=== PATIENT | male | born 1990 | race Caucasian/White ===

== ENCOUNTER 2018-12-06 19:18 | Observation (INO) ==
--- NOTE | 2018-12-06 19:34 | Emergency Department Note ---
Disposition Clinical Impression: Calculus of kidney, Renal colic, Pyelonephritis Disposition: Admitted As Inpatient Condition: Fair Time of Disposition: 22:25 General Adult HPI - General Chief complaint: ED Abdominal Pain Stated complaint: kidney stone Time Seen by Provider: 12/06/18 19:28 Source: family Limitations: physical limitation - History of Present Illness Pain Scale: 9 - Related Data Home Medications Medication Instructions Recorded Confirmed LORazepam [Ativan] 2 mg PO QID 01/21/15 02/04/15 LevETIRAcetam [Keppra] 1,000 mg PO Q12H 01/21/15 02/04/15 Multivitamin [Flintstones] 1 each PO DAILY 01/21/15 02/04/15 Ondansetron [Zofran] 4 mg PO Q8HR PRN 01/21/15 02/04/15 Tizanidine [Zanaflex] 4 mg PO TID 01/21/15 02/04/15 Topiramate [Topamax] 50 mg PO HS 01/21/15 02/04/15 Previous Rx's Medication Instructions Recorded Acetaminophen w/Cod 300-30 mg 1 tab PO Q6HR PRN #33 tablet 02/04/15 [Tylenol w/Codeine #3] Acetaminophen w/Cod 300-30 mg 1 tab PO Q6HR PRN #33 tablet 02/04/15 [Tylenol w/Codeine #3] Clindamycin [Cleocin] 2 cap PO Q6HR #40 capsule 02/04/15 Clindamycin [Cleocin] 2 cap PO Q6HR #40 capsule 02/04/15 Allergies Allergy/AdvReac Type Severity Reaction Status Date / Time acetaminophen [From Percocet] Allergy Mild ITCHING Verified 01/21/15 07:39 HIVES oxycodone [From Percocet] Allergy Mild ITCHING Verified 01/21/15 07:39 HIVES Buspirone [From BuSpar] Allergy Unknown HIVES Verified 01/21/15 07:39 AGITATION INCREASED BP carbamazepine [From Tegretol] Allergy Unknown HIVES Verified 01/21/15 07:39 AGITATION INCREASED BP citalopram [From Celexa] Allergy Unknown HIVES Verified 01/21/15 07:39 AGITATION INCREASED BP diazepam [From Valium] Allergy Unknown HIVES Verified 01/21/15 07:39 AGITATION INCREASED BP hydromorphone [From Dilaudid] Allergy Unknown DECREASED Verified 01/21/15 07:39 BP RESPITORY DISTRESS lacosamide [From Vimpat] Allergy Unknown HIVES Verified 01/21/15 07:39 AGITATION INCREASED BP lamotrigine [From Lamictal] Allergy Unknown HIVES Verified 01/21/15 07:39 AGITATION INCREASED BP morphine Allergy Unknown HIVES Verified 01/21/15 07:39 INCREASED BP RESPITORY DISTRESS Past Medical History - Past Medical History Medical history: Reports: kidney stones Psychiatric history: Reports: no psych history - Social History Smoking Status: Never smoker Smokeless Tobacco Status: No Alcohol use: Reports: none Drug use: Reports: none Physical Exam - General Limitations: physical limitation Course Vital Signs Temperature 98.2 F 12/06/18 19:20 Pulse Rate 115 12/06/18 19:20 Respiratory Rate 18 12/06/18 19:20 Blood Pressure 131/83 12/06/18 19:20 O2 Sat by Pulse Oximetry 100 12/06/18 19:20 Temperature 98.2 F 12/06/18 19:20 Pulse Rate 111 12/06/18 21:05 Respiratory Rate 20 12/06/18 21:05 Blood Pressure 140/90 12/06/18 21:05 O2 Sat by Pulse Oximetry 99 12/06/18 21:05 Oxygen Delivery Oxygen Delivery Room Air Medical Decision Making - Lab Data Result diagrams: 12/06/18 19:45 12/06/18 19:45 Lab Results 12/06/18 12/06/18 12/06/18 Range/Units 19:45 19:45 20:35 WBC 11.2 H (4.3-11.1) K/mcL RBC 4.16 L (4.19-5.50) M/mcL Hgb 13.0 (12.9-16.9) g/dL Hct 37.9 (37.5-50.1) % MCV 91.1 (83.0-100.0) fL MCH 31.3 (28.0-33.3) pg MCHC 34.3 (31.6-35.5) g/dL RDW 11.5 (11.5-14.5) % Plt Count 152 (140-400) K/mcL MPV 10.2 (9.4-12.4) fL Immature Gran % 0.3 (0-4) % Seg Neutrophils % 66.4 % Lymphocytes % 20.5 % Monocytes % 12.0 % Eosinophils % 0.4 % Basophils % 0.4 % Neutrophils # 7.5 (1.6-8.9) K/mcL Lymphocytes # 2.3 (0.6-4.6) K/mcL Monocytes # 1.4 H (0.0-1.3) K/mcL Eosinophils # 0.1 (0.0-0.6) K/mcL Basophils # 0.1 (0.0-0.2) K/mcL Sodium 138 (136-145) mEq/L Potassium 3.4 L (3.5-5.1) mEq/L Chloride 106 (98-107) mEq/L Carbon Dioxide 26 (23-29) mEq/L BUN 11 (6-20) mg/dL Creatinine 1.11 (0.70-1.30) mg/dL Est GFR ( Amer) > 60 (> 60) Est GFR (Non-Af Amer) > 60 (> 60) BUN/Creatinine Ratio 10 (6-26) Glucose 124 H (70-105) mg/dL Calculated Osmolality 287 (280-300) Lactic Acid (0.5-2.2) mmol/L Calcium 9.5 (8.6-10.3) mg/dL Total Bilirubin 0.6 (0.3-1.0) mg/dL AST 19 (13-39) Units/L ALT 23 (7-52) Units/L Alkaline Phosphatase 44 (34-104) Units/L Serum Total Protein 7.6 (6.4-8.9) g/dL Albumin 4.4 (3.5-5.7) g/dL Globulin 3.2 (2.4-3.5) g/dL Albumin/Globulin Ratio 1.4 (1.1-2.2) Urine Color Dark Yellow (Yellow) Urine Clarity Cloudy A (Clear) Urine pH 7.5 (5.0-8.0) pH Units Ur Specific [place] 1.030 H (1.010-1.025) Urine Protein 30 H (Neg-Trace) mg/dL Urine Glucose (UA) Normal (Normal) mg/dL Urine Ketones Negative (Negative) mg/dL Urine Blood Negative (Negative) Urine Nitrite Negative (Negative) Urine Bilirubin Small H (Negative) Urine Urobilinogen Normal (Normal) mg/dL Ur Leukocyte Esterase Moderate H (Negative) Urine Microscopic RBC 3-5 H (0-3) per hpf Urine Microscopic WBC 50-100 H (0-3) per hpf Ur Squamous Epith Cells Few (None-Few) per lpf Urine Bacteria Moderate H (None-Few) per hpf Hyaline Casts Moderate H (None-Few) per lpf 12/06/18 Range/Units 21:51 WBC (4.3-11.1) K/mcL RBC (4.19-5.50) M/mcL Hgb (12.9-16.9) g/dL Hct (37.5-50.1) % MCV (83.0-100.0) fL MCH (28.0-33.3) pg MCHC (31.6-35.5) g/dL RDW (11.5-14.5) % Plt Count (140-400) K/mcL MPV (9.4-12.4) fL Immature Gran % (0-4) % Seg Neutrophils % % Lymphocytes % % Monocytes % % Eosinophils % % Basophils % % Neutrophils # (1.6-8.9) K/mcL Lymphocytes # (0.6-4.6) K/mcL Monocytes # (0.0-1.3) K/mcL Eosinophils # (0.0-0.6) K/mcL Basophils # (0.0-0.2) K/mcL Sodium (136-145) mEq/L Potassium (3.5-5.1) mEq/L Chloride (98-107) mEq/L Carbon Dioxide (23-29) mEq/L BUN (6-20) mg/dL Creatinine (0.70-1.30) mg/dL Est GFR ( Amer) (> 60) Est GFR (Non-Af Amer) (> 60) BUN/Creatinine Ratio (6-26) Glucose (70-105) mg/dL Calculated Osmolality (280-300) Lactic Acid 1.0 (0.5-2.2) mmol/L Calcium (8.6-10.3) mg/dL Total Bilirubin (0.3-1.0) mg/dL AST (13-39) Units/L ALT (7-52) Units/L Alkaline Phosphatase (34-104) Units/L Serum Total Protein (6.4-8.9) g/dL Albumin (3.5-5.7) g/dL Globulin (2.4-3.5) g/dL Albumin/Globulin Ratio (1.1-2.2) Urine Color (Yellow) Urine Clarity (Clear) Urine pH (5.0-8.0) pH Units Ur Specific [place] (1.010-1.025) Urine Protein (Neg-Trace) mg/dL Urine Glucose (UA) (Normal) mg/dL Urine Ketones (Negative) mg/dL Urine Blood (Negative) Urine Nitrite (Negative) Urine Bilirubin (Negative) Urine Urobilinogen (Normal) mg/dL Ur Leukocyte Esterase (Negative) Urine Microscopic RBC (0-3) per hpf Urine Microscopic WBC (0-3) per hpf Ur Squamous Epith Cells (None-Few) per lpf Urine Bacteria (None-Few) per hpf Hyaline Casts (None-Few) per lpf Attestation Statement - Attestation Attestation: I reviewed the residents documentation and agree with the residents assessment and plan of care. I have personally had face to face time with the patient. (Brief History, Brief Exam, and MDM) I personally supervised and was present for the moody/critical portions of the following procedures completed by the resident: (add procedures performed here). [id number] time provided Patient arrives care of his mother. He has a recent history of urologic instrumentation with stent placement due to obstructive uropathy. The patient appears uncomfortable on exam. The patient was evaluated in conjunction with the resident physician Dr. Alejo
[2018-12-06] MEDS ORDERED: *HR* FentaNYL (PF) 100 MCG/2 ML VIAL IVP ONE ×2 (19:36→20:38)
--- NOTE | 2018-12-06 19:41 | Emergency Department Note ---
Disposition Clinical Impression: Calculus of kidney, Renal colic, Pyelonephritis Disposition: Admitted As Inpatient Condition: Fair Time of Disposition: 22:23 Abdominal Pain HPI - General Chief Complaint: ED Abdominal Pain Stated Complaint: kidney stone Source: family - History of Present Illness HPI Narrative: Kraig is a 28-year-old male with past medical history of having cer palsy and epilepsy with recent hospitalization for renal failure secondary to kidney stones who presented to the ED with back pain and abdominal pain. Patient's mom states that 7 weeks ago, he was diagnosed with multiple kidney stones and has undergone 4 surgeries at [facility] within the last 4 weeks and has been unable to pass small. She states that he began to have a fever today MAXIMUM TEMPERATURE 103.1F. Patient was given ibuprofen 800mg , Zofran 4 mg, and hydrocodone 7.5 mg at 1715 today. His nausea was resolved with this medication regimen by his pain is still severe. Today patient has been having dysuria and having to push urine out. Denies hematuria. Mom became concerned because he previously had sepsis when all this started in he had new-onset fever today. He has been following with the urologist in [place], [place], but has an appointment with Dr. Alcaraz on December. Patient has had 2 CT scans within the last 7 weeks with the last CT scan being 3 weeks ago. Admits to bilateral lower extremity edema. Denies dizziness, changes in vision, shortness breath, chest pain. Pain Scale: 9 - Related Data Home Medications Medication Instructions Recorded Confirmed LORazepam [Ativan] 2 mg PO QID 01/21/15 02/04/15 LevETIRAcetam [Keppra] 1,000 mg PO Q12H 01/21/15 02/04/15 Multivitamin [Flintstones] 1 each PO DAILY 01/21/15 02/04/15 Ondansetron [Zofran] 4 mg PO Q8HR PRN 01/21/15 02/04/15 Tizanidine [Zanaflex] 4 mg PO TID 01/21/15 02/04/15 Topiramate [Topamax] 50 mg PO HS 01/21/15 02/04/15 Previous Rx's Medication Instructions Recorded Acetaminophen w/Cod 300-30 mg 1 tab PO Q6HR PRN #33 tablet 02/04/15 [Tylenol w/Codeine #3] Acetaminophen w/Cod 300-30 mg 1 tab PO Q6HR PRN #33 tablet 02/04/15 [Tylenol w/Codeine #3] Clindamycin [Cleocin] 2 cap PO Q6HR #40 capsule 02/04/15 Clindamycin [Cleocin] 2 cap PO Q6HR #40 capsule 02/04/15 Allergies Allergy/AdvReac Type Severity Reaction Status Date / Time acetaminophen [From Percocet] Allergy Mild ITCHING Verified 01/21/15 07:39 HIVES oxycodone [From Percocet] Allergy Mild ITCHING Verified 01/21/15 07:39 HIVES Buspirone [From BuSpar] Allergy Unknown HIVES Verified 01/21/15 07:39 AGITATION INCREASED BP carbamazepine [From Tegretol] Allergy Unknown HIVES Verified 01/21/15 07:39 AGITATION INCREASED BP citalopram [From Celexa] Allergy Unknown HIVES Verified 01/21/15 07:39 AGITATION INCREASED BP diazepam [From Valium] Allergy Unknown HIVES Verified 01/21/15 07:39 AGITATION INCREASED BP hydromorphone [From Dilaudid] Allergy Unknown DECREASED Verified 01/21/15 07:39 BP RESPITORY DISTRESS lacosamide [From Vimpat] Allergy Unknown HIVES Verified 01/21/15 07:39 AGITATION INCREASED BP lamotrigine [From Lamictal] Allergy Unknown HIVES Verified 01/21/15 07:39 AGITATION INCREASED BP morphine Allergy Unknown HIVES Verified 01/21/15 07:39 INCREASED BP RESPITORY DISTRESS Review of Systems: As Per HPI Abdominal Pain PMH - Past Medical History Medical history: Reports: kidney stones Psychiatric history: Reports: no psych history - Social History Smoking status: Never smoker Alcohol use: Reports: none Drug use: Reports: none Physical Exam Constitutional: Alert, in no acute distress Head: Normocephalic, atraumatic Heart: Normal, regular rate and rhythm, no murmurs Lungs: Clear to auscultation, no wheezes, rales, or rhonchi Abdomen: CVA tenderness bilaterally, tenderness in bilateral right quadrants, Soft, nondistended, bowel sounds present and normal, no guarding or rigidity. Extremities: non-pitting edema bilaterally in lower extremities, No clubbing, r adial pulse +2/4, capillary refill <2sec. Skin: Skin warm and dry, no lesions, no rashes, no jaundice Neurologic: Cranial nerves II through XII grossly intact, Psych: Cooperative with exam, good eye contact, cognitive function intact, speech clear, thought process logical, and goal directed - General Limitations: physical limitation Course Course Narrative: History of kidney stones, unresolved. Will obtain a CT scan of his abdomen and pelvis w/o contrast to assess for renal obstruction/hydronephrosis. Will obtain CBC, UA, and BMP to assess kidney function and look for signs of pyelonephritis. - Reevaluation(s) Reevaluation #1: Patient having urinary retention and has been unable to give a urinary sample. Will obtain sample be a urinary catheterization. Time: 20:41 Reevaluation #2: Vitals showed persistent tachycardia. Labs were wnl except for mild hypokalemia. CT scan of abdomen showed Hyperdensity within the right renal calices and is most concerning for renal calculi, potentially representing a staghorn renal calculi and renal cysts. UA showed leuk esterase moderate, WBC elevated, proteinuria. Fluid bolus given and maintenance fluids started. Rocephin 1g given for pyelonephritis. Urology Dr. Yeung was notified of patient and recommended admission to the hospitalist for pylonephritis. Discussed patient with hospitalist Jonelle and accepted patient. Blood cultures are pending. Lactic acid wnl. Patient was admitted to the floor. Vital Signs Temperature 98.2 F 12/06/18 19:20 Pulse Rate 115 12/06/18 19:20 Respiratory Rate 18 12/06/18 19:20 Blood Pressure 131/83 12/06/18 19:20 O2 Sat by Pulse Oximetry 100 12/06/18 19:20 Temperature 98.2 F 12/06/18 19:20 Pulse Rate 115 12/06/18 19:20 Respiratory Rate 18 12/06/18 19:20 Blood Pressure 131/83 12/06/18 19:20 O2 Sat by Pulse Oximetry 100 12/06/18 19:20 Oxygen Delivery Oxygen Delivery Room Air Abdominal Pain - MDM Narrative Medical decision making narrative: Calculus of kidney with possible pyleonephritis. Patient has had fevers today. He has had recent surgery within his track and kidney stones with urinary retention. CT scan of abdomen showed renal calci but not urethral calci. Possible renal cysts. - Medical Records Medical records reviewed: Yes I reviewed the patient's medical records. - Lab Data Lab results reviewed: Yes I reviewed the patient's lab results. - Radiology Data Radiology results reviewed: Yes I reviewed the patient's radiology results.
[2018-12-06 20:09] LABS: Basophils # 0.1 K/mcL (0.0-0.2); Basophils % 0.4 %; Eosinophils # 0.1 K/mcL (0.0-0.6); Eosinophils % 0.4 %; Hematocrit 37.9 % (37.5-50.1); Immature Granulocytes % 0.3 % (0-4); Lymphocytes # 2.3 K/mcL (0.6-4.6); Lymphocytes % 20.5 %; Mean Corpuscular HGB Conc 34.3 g/dL (31.6-35.5); Mean Corpuscular Hemoglobin 31.3 pg (28.0-33.3); Mean Corpuscular Volume 91.1 fL (83.0-100.0); Mean Platelet Volume 10.2 fL (9.4-12.4); Monocytes # 1.4 K/mcL (0.0-1.3); Neutrophils # 7.5 K/mcL (1.6-8.9); Platelet Count 152 K/mcL (140-400); Red Blood Count 4.16 M/mcL (4.19-5.50); Red Cell Distribution Width 11.5 % (11.5-14.5); Segmented Neutrophils % 66.4 %; White Blood Count 11.2 K/mcL (4.3-11.1)
[2018-12-06 20:21] LABS: Alanine Aminotransferase 23 Units/L (7-52); Albumin 4.4 g/dL (3.5-5.7); Albumin/Globulin Ratio 1.4 (1.1-2.2); Alkaline Phosphatase 44 Units/L (34-104); Aspartate Amino Transferase 19 Units/L (13-39); BUN/Creatinine Ratio 10 (6-26); Bilirubin,Total 0.6 mg/dL (0.3-1.0); Blood Urea Nitrogen 11 mg/dL (6-20); Calcium 9.5 mg/dL (8.6-10.3); Carbon Dioxide 26 mEq/L (23-29); Chloride 106 mEq/L (98-107); Globulin 3.2 g/dL (2.4-3.5); Glucose 124 mg/dL (70-105); Osmolality,Calculated 287 (280-300); Potassium 3.4 mEq/L (3.5-5.1); Sodium 138 mEq/L (136-145); Total Protein 7.6 g/dL (6.4-8.9); eGFR For African Americans > 60 (> 60); eGFR For Non-African Americans > 60 (> 60)
[2018-12-06 21:08] LABS: Bilirubin,Urine Small (Negative); Blood,Urine Negative (Negative); Clarity,Urine Cloudy (Clear); Color,Urine Dark Yellow (Yellow); Glucose,Urine (UA) Normal (Normal); Ketones,Urine Negative (Negative); Leukocyte Esterase,Urine Moderate (Negative); Nitrite,Urine Negative (Negative); PH,Urine 7.5 pH Units (5.0-8.0); Protein,Urine 30 mg/dL (Neg-Trace); Urobilinogen,Urine Normal (Normal)
[2018-12-06 21:13] LABS: Bacteria,Urine Moderate per hpf (None-Few); Hyaline Casts,Urine Moderate per lpf (None-Few); Squamous Epithelial Cell,Urine Few per lpf (None-Few); WBC,Urine 50-100 per hpf (0-3)
[2018-12-06] MEDS ORDERED: 0.9 % Sodium Chloride 1,000 ML IVC ONE (21:51)
[2018-12-06] MEDS ORDERED: 0.9 % Sodium Chloride 1,000 ML IVC SCH (22:00)
[2018-12-06] MEDS: cefTRIAXone 1,000 MG in Water for inj. (sterile) 10 ML IVP SCH (22:30)
[2018-12-06] MEDS ORDERED: Ondansetron 4 MG/2 ML VIAL IVP PRN (22:44)
[2018-12-06] MEDS ORDERED: traMADol 50 MG TABLET PO PRN (22:45)
[2018-12-06] MEDS ORDERED: Ringers Solution, Lactated 1,000 ML IVC SCH (22:45)
[2018-12-06] MEDS ORDERED: Naloxone 0.4 MG/ML INJ IVP PRN (22:45)
[2018-12-06] MEDS ORDERED: Acetaminophen 325 MG TABLET PO PRN (23:12)
--- NOTE | 2018-12-06 23:25 | Internal Med History&Physical ---
Date of Encounter: 12/06/18 Time of Encounter: 23:24 Internal Medicine - H&P: HPI Chief complaint: pain Admitted From: Home Plans for Post Hospital Care: Home History of present illness: Kraig Claros is a 28 year old man with cerebral palsy complicated by epilepsy that required a vagal nerve stimulator and of recent has been hospitalized for acute kidney injury in the setting of nephrolithiasis, undergo ing interventions for stone removal at [facility] in the past 7 weeks. The mother states that she took him to urgent care with complaints of right flank pain and was found to have a large right renal calculus and in acute renal failure. He was transferred to [place] where multiple attempts were made for stone extraction and stent placement but were unsuccessful. He was meant to continue following as an outpatient. The mother then booked an appointment to see Dr Alcaraz in our clinic in 3 weeks. However since yesterday the patient complained of generalized malaise and feeling unwell with nausea. Today his mother noted him to be febrile to 102.3F reported so he was given ibuprofen, ondansetron and hydrocodone because of severe pain. He complained with difficulty with micturition, having to strain but denied dysuria. He denies associated diarrhea, vomiting and hematuria but acknowledge feeling nauseated. He localizes his pain to the right flank and upper quadrant radiating into the lumbar region. In the ER he was notably tachycardic but afebrile. Lab work revealed a leukocyte count of 11.2, potassium 3.4, creatinine 1.1 and a UA without nitrites but moderate leukocyte esterase and significant pyuria. CT of his abdomen is reviewed by me and revealed a hyperdensity in the right renal calyces concerning for acalculous potentially represent staghorn renal calculus as per the official report. He received 2 doses of 50mcg fentanyl in the ER and he is admitted for further care. Vitals: Reviewed General: Well developed, sitting in a mobile wheelchair. Skin: Warm, pale and dry. HEENT: Moist mucous membranes. No conjunctivae pallor. Neck: No lymphadenopathy. No JVD. No carotid bruits. No palpable thyroid. Chest: Normal thoracic expansion. Normal breath sounds. Clear to auscultation. Heart: Normal S1 & S2; rhythmic. No rubs or murmurs. Abdomen: Non-distended, soft and tender to palpation in the right flank and RUQ. (+) R CVA tenderness. Extremities: No clubbing, cyanosis or edema. No calf tenderness. Normal distal pulses. Neurological: Awake, alert and oriented to person, place and time. Psych: Affect appropriate. Assessment/Plan 1. Nephrolithiasis: Complicated given the apparent size and difficulty with extraction over the past 2 months. He patient has a significant amount of pain when straining to void therefore will insert a farley catheter to bring some relief to his straining since we will be giving ongoing IVF and for close monitoring of urine output given the possibility of retention. Urology consult has been requested. Start ceftriaxone 1gr q24hrs empirically given the significant pyuria and only minimal microscopic hematuria which gives concern for infection although possibly from all the manipulations received. Send urine for culture. Analgesics and antiemetics ordered as needed. The allergies listed in our computer system are incorrect as per the mother and he can tolerate the pain medications. 2. Epilepsy: Well controlled. Seizure precautions ordered. Will resume home medications once confirmed. 3. Cerebral palsy: Stable. Patient conversant. 4. DVT prophylaxis: Antiembolic stockings ordered. Past Med Surg Social Fam HX - Past Medical History Medical history: kidney stones Additional medical history: seizures,cerebral palsy,atonic complex partial Psychiatric history: no psych history - Past Surgical History Additional surgical history: dorsal rhizotomy,vagus nerve stimulator,pharygeal flap removed, lithotripsy - Social History Smoking Status: Never smoker Smokeless Tobacco Status: No Alcohol use: none Drug use: none Internal Medicine - H&P: Meds LORazepam [Ativan] 2 mg PO QID 01/21/15 [History] LevETIRAcetam [Keppra] 1,000 mg PO Q12H 01/21/15 [History] Multivitamin [Flintstones] 1 each PO DAILY 01/21/15 [History] Ondansetron [Zofran] 4 mg PO Q8HR PRN 01/21/15 [History] Tizanidine [Zanaflex] 4 mg PO TID 01/21/15 [History] Topiramate [Topamax] 50 mg PO HS 01/21/15 [History] Acetaminophen w/Cod 300-30 mg [Tylenol w/Codeine #3] 1 tab PO Q6HR PRN #33 tablet 02/04/15 [Rx] Acetaminophen w/Cod 300-30 mg [Tylenol w/Codeine #3] 1 tab PO Q6HR PRN #33 tablet 02/04/15 [Rx] Clindamycin [Cleocin] 2 cap PO Q6HR #40 capsule 02/04/15 [Rx] Clindamycin [Cleocin] 2 cap PO Q6HR #40 capsule 02/04/15 [Rx] Allergy/AdvReac Type Severity Reaction Status Date / Time acetaminophen [From Percocet] Allergy Mild ITCHING Verified 01/21/15 07:39 HIVES oxycodone [From Percocet] Allergy Mild ITCHING Verified 01/21/15 07:39 HIVES Buspirone [From BuSpar] Allergy Unknown HIVES Verified 01/21/15 07:39 AGITATION INCREASED BP carbamazepine [From Tegretol] Allergy Unknown HIVES Verified 01/21/15 07:39 AGITATION INCREASED BP citalopram [From Celexa] Allergy Unknown HIVES Verified 01/21/15 07:39 AGITATION INCREASED BP diazepam [From Valium] Allergy Unknown HIVES Verified 01/21/15 07:39 AGITATION INCREASED BP hydromorphone [From Dilaudid] Allergy Unknown DECREASED Verified 01/21/15 07:39 BP RESPITORY DISTRESS lacosamide [From Vimpat] Allergy Unknown HIVES Verified 01/21/15 07:39 AGITATION INCREASED BP lamotrigine [From Lamictal] Allergy Unknown HIVES Verified 01/21/15 07:39 AGITATION INCREASED BP morphine Allergy Unknown HIVES Verified 01/21/15 07:39 INCREASED BP RESPITORY DISTRESS All Systems PM: A 10-system review of systems was performed and is negative for pertinent findings except as documented above in the HPI. Family history reviewed and found non-contributory. - Constitutional Vitals: Temp Pulse Resp BP Pulse Ox 98.2 F 111 16 148/85 99 12/06/18 19:20 12/06/18 21:05 12/06/18 23:22 12/06/18 23:22 12/06/18 21:05 Exam: . Internal Med - H&P Results - Labs CBC & Chem 7: 12/06/18 19:45 12/06/18 19:45 Labs: Short CBC 12/06/18 Range/Units 19:45 WBC 11.2 H (4.3-11.1) K/mcL Hgb 13.0 (12.9-16.9) g/dL Hct 37.9 (37.5-50.1) % Plt Count 152 (140-400) K/mcL Neutrophils # 7.5 (1.6-8.9) K/mcL BMP 12/06/18 19:45 Sodium 138 Potassium 3.4 L Chloride 106 Carbon Dioxide 26 BUN 11 Creatinine 1.11 Glucose 124 H Calcium 9.5 Liver Function 12/06/18 Range/Units 19:45 Total Bilirubin 0.6 (0.3-1.0) mg/dL AST 19 (13-39) Units/L ALT 23 (7-52) Units/L Alkaline Phosphatase 44 (34-104) Units/L Albumin 4.4 (3.5-5.7) g/dL Urine 12/06/18 Range/Units 20:35 Urine Color Dark Yellow (Yellow) Urine Clarity Cloudy A (Clear) Urine pH 7.5 (5.0-8.0) pH Units Ur Specific [place] 1.030 H (1.010-1.025) Urine Protein 30 H (Neg-Trace) mg/dL Urine Glucose (UA) Normal (Normal) mg/dL - Impressions ITS Impressions Abdomen/Pelvis CT 12/06/18 19:43 IMPRESSION: Hyperdensity within the right renal calices is most concerning for a renal calculus, potentially representing a staghorn renal calculus. No evidence of ureteral calculus. No evidence of hydronephrosis. Follow-up with urology is recommended. 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 Lesser degree of right hip dysplasia is also noted. Chronic bilateral pars defects at L5. No significant spondylolisthesis. Multiple hypodense renal lesions bilaterally are not completely characterized on this examination. This is most likely renal cysts. This can be confirmed with renal ultrasound non-emergently. D/ / 12/06/2018 22:04:21 Pranay Stone MD / [email or web address] Interpreting Provider: Pranay Stone MD - Time Spent With Patient Total time spent is greater than 50% in coordination of care (as documented) at patient's floor/unit and/or counseling patient: Greater than 35 minutes
[2018-12-07] MEDS: 0.9 % Sodium Chloride 1,000 ML IVC SCH ×2 (00:26→08:55)
[2018-12-07] MEDS: Ketorolac 30 MG/ML VIAL IVP PRN ×2 (00:28→15:11)
[2018-12-07] MEDS ORDERED: *HR* LORazepam 1 MG TABLET PO PRN (00:59)
[2018-12-07] MEDS: tiZANidine 4 MG TABLET PO SCH ×2 (01:49→20:27)
[2018-12-07] MEDS: Divalproex (24 HR) 250 MG TABLET PO SCH ×2 (01:49→20:27)
[2018-12-07] MEDS: clonazePAM 0.5 MG TABLET PO SCH ×3 (01:49→20:27)
[2018-12-07] MEDS: Topiramate 25 MG TABLET PO SCH ×2 (01:49→20:28)
[2018-12-07] MEDS: Loratadine 10 MG TABLET PO SCH ×2 (01:50→09:24)
[2018-12-07 04:37] LABS: Basophils % 0.2 %; Eosinophils % 0.4 %; Immature Granulocytes % 0.2 % (0-4); Lymphocytes # 2.1 K/mcL (0.6-4.6); Lymphocytes % 23.4 %; Mean Corpuscular HGB Conc 33.7 g/dL (31.6-35.5); Mean Corpuscular Hemoglobin 31.4 pg (28.0-33.3); Mean Corpuscular Volume 93.2 fL (83.0-100.0); Mean Platelet Volume 9.9 fL (9.4-12.4); Monocytes # 1.2 K/mcL (0.0-1.3); Neutrophils # 5.7 K/mcL (1.6-8.9); Platelet Count 122 K/mcL (140-400); Red Blood Count 3.22 M/mcL (4.19-5.50); Red Cell Distribution Width 11.5 % (11.5-14.5); Segmented Neutrophils % 62.8 %; White Blood Count 9.1 K/mcL (4.3-11.1)
[2018-12-07 04:39] LABS: Hemoglobin 10.1 g/dL (12.9-16.9)
[2018-12-07 04:44] LABS: INR 1.1; Prothrombin Time 12.3 Seconds (9.4-12.1)
[2018-12-07 04:47] LABS: Activated Partial Thrombo Time 33.3 Seconds (26.0-36.0)
[2018-12-07 04:57] LABS: BUN/Creatinine Ratio 13 (6-26); Blood Urea Nitrogen 13 mg/dL (6-20); Calcium 8.4 mg/dL (8.6-10.3); Carbon Dioxide 22 mEq/L (23-29); Chloride 109 mEq/L (98-107); Glucose 109 mg/dL (70-105); Osmolality,Calculated 289 (280-300); Potassium 3.5 mEq/L (3.5-5.1); Sodium 139 mEq/L (136-145); eGFR For African Americans > 60 (> 60); eGFR For Non-African Americans > 60 (> 60)
[2018-12-07] MEDS ORDERED: BRIVIACT 50 MG PO SCH (09:00)
[2018-12-07] MEDS: cefTRIAXone 1,000 MG in Water for inj. (sterile) 10 ML IVP SCH (09:24)
--- NOTE | 2018-12-07 10:19 | Urology - Consult Note ---
Date of Encounter: 12/07/18 Time of Encounter: 09:55 - Assessment and Plan (1) Calculus of kidney Current Visit: Yes Status: Acute Assessment and plan: Patient is a 28-year-old male with a right staghorn renal calculus. Vital signs are stable and afebrile. Renal function is reassuring. CT does not suggest hydronephrosis or evidence of acute obstruction. I discussed case with Dr. Yeung who will reevaluate patient later today. Our plan is to continue with pain control, fluid resuscitation and await blood cultures. The family wishes to become established with Dr. Alcaraz, and we will arrange an outpatient follow- up to discuss definitive stone extraction with Dr. Alcaraz. (2) Pyelonephritis Current Visit: Yes Status: Acute Assessment and plan: Patient is a 28-year-old male who presents with pyelonephritis. Vital signs are stable and afebrile. White blood cell count and renal function are both reassuring. Blood cultures have been collected and are pending. Patient is receiving IV Rocephin. Urology CN:HPI Consult date: 12/07/18 Reason for consult Urology: Other (renal stone) Requesting physician: Ubaldo Zarate History of present illness: Patient is a 28 year old male who presents with a right staghorn renal calculus. Patient has a past medical history significant for cerebral palsy, epilepsy and renal stones. Patient's mother brought him to the emergency department after a one day history of right flank pain, nausea, vomiting, fever to 102.3F and chills. Patient has been receiving urologic care from [facility], and patient's mother reports he has undergone 4 procedures for stone extraction in the last 7 weeks. Patient has been taking Topamax for epilepsy, and his neurologist is weaning him off it. Prior to 7 weeks ago, patient has no previous history of renal stones. Patient does, however, have a very significant family history of renal stones through his mother and brother. Currently, on my evaluation, patient is lying in bed in no apparent distress, and a Borjas catheter is indwelling and draining transparent, clear yellow urine into bedside bag. Past Med Surg Social Fam HX - Past Medical History Medical history: kidney stones Additional medical history: seizures,cerebral palsy,atonic complex partial Psychiatric history: no psych history - Past Surgical History Additional surgical history: dorsal rhizotomy,vagus nerve stimulator,pharygeal flap removed, lithotripsy - Social History Smoking Status: Never smoker Smokeless Tobacco Status: No Alcohol use: none Drug use: none - Family History Mother Hx Family Genitourinary Disorders: Yes (renal stones ) Brother Hx Family Genitourinary Disorders: Yes (renal stones ) Medications and Allergies LORazepam [Ativan] 2 mg PO TID PRN 01/21/15 [History] LevETIRAcetam [Keppra] 1,000 mg PO Q12H 01/21/15 [History] Multivitamin [Flintstones] 1 each PO DAILY 01/21/15 [History] Ondansetron [Zofran] 4 mg PO Q8HR PRN 01/21/15 [History] Tizanidine [Zanaflex] 4 mg PO HS 01/21/15 [History] Topiramate [Topamax] 150 mg PO HS 01/21/15 [History] Acetaminophen w/Cod 300-30 mg [Tylenol w/Codeine #3] 1 tab PO Q6HR PRN #33 tablet 02/04/15 [Rx] Acetaminophen w/Cod 300-30 mg [Tylenol w/Codeine #3] 1 tab PO Q6HR PRN #33 tablet 02/04/15 [Rx] Clindamycin [Cleocin] 2 cap PO Q6HR #40 capsule 02/04/15 [Rx] Clindamycin [Cleocin] 2 cap PO Q6HR #40 capsule 02/04/15 [Rx] Briviact 50 mg PO DAILY 12/07/18 [History] Divalproex (24 HR) [Depakote ER (24 HR)] 1,250 mg PO HS 12/07/18 [History] Epidiolex 4.5 ml PO BID 12/07/18 [History] Klonopin 0.5 mg PO BID 12/07/18 [History] Loratadine 10 mg PO DAILY 12/07/18 [History] Mirabegron 50 mg PO Q24H 12/07/18 [History] Allergy/AdvReac Type Severity Reaction Status Date / Time acetaminophen [From Percocet] Allergy Mild ITCHING Verified 01/21/15 07:39 HIVES oxycodone [From Percocet] Allergy Mild ITCHING Verified 01/21/15 07:39 HIVES Buspirone [From BuSpar] Allergy Unknown HIVES Verified 01/21/15 07:39 AGITATION INCREASED BP carbamazepine [From Tegretol] Allergy Unknown HIVES Verified 01/21/15 07:39 AGITATION INCREASED BP citalopram [From Celexa] Allergy Unknown HIVES Verified 01/21/15 07:39 AGITATION INCREASED BP diazepam [From Valium] Allergy Unknown HIVES Verified 01/21/15 07:39 AGITATION INCREASED BP hydromorphone [From Dilaudid] Allergy Unknown DECREASED Verified 01/21/15 07:39 BP RESPITORY DISTRESS lacosamide [From Vimpat] Allergy Unknown HIVES Verified 01/21/15 07:39 AGITATION INCREASED BP lamotrigine [From Lamictal] Allergy Unknown HIVES Verified 01/21/15 07:39 AGITATION INCREASED BP morphine Allergy Unknown HIVES Verified 01/21/15 07:39 INCREASED BP RESPITORY DISTRESS Review of Systems - Constitutional chills, fatigue, fever(s) - EENT Nose, mouth and throat: no dizziness, no headache(s) - Cardiovascular no chest pain, no diaphoresis, no dyspnea - Respiratory no cough, no dyspnea - Gastrointestinal abdominal pain, nausea, vomiting - Genitourinary flank pain, no change in urinary stream, no difficulty urinating, no dysuria, no hematuria, no urinary frequency, no urinary hesitancy, no urinary incontinence, no urinary urgency - Musculoskeletal back pain, no numbness - Integumentary no erythema, no rash - Neurological no confusion, no syncope - Psychiatric no anxiety, no confusion - Hematologic/Lymphatic no easy bleeding, no easy bruising - Allergic/Immunologic no throat swelling, no wheezing Exam Initial Vital Signs Temp Pulse Resp BP Pulse Ox 98.2 F 115 18 131/83 100 12/06/18 19:20 12/06/18 19:20 12/06/18 19:20 12/06/18 19:20 12/06/18 19:20 - General physical appearance Present: no distress, no pain - Eyes Present: PERRL, normal ocular movement - ENT Present: normal nares, no hearing loss, no congestion - Neck Present: no masses, trachea midline, no lymphadenopathy - Respiratory Present: normal respiratory effort - Cardiovascular Cardiovascular exam IM: RRR - Abdomen Abdomen: Present: soft, non tender. Absent: distended - Genitourinary other (Borjas catheter indwelling and draining transparent, clear yellow urine into bedside bag) - Integumentary Present: no rash, no abnormal pigmentation - Neurologic Present: normal coordination - Musculoskeletal Present: other (bilateral contracted lower exremities ) Urology Results - Labs 12/07/18 04:22 12/07/18 04:22 Abnormal lab results WBC 11.2 K/mcL (4.3-11.1) H 12/06/18 19:45 RBC 3.22 M/mcL (4.19-5.50) L 12/07/18 04:22 Hgb 10.1 g/dL (12.9-16.9) L D 12/07/18 04:22 Hct 30.0 % (37.5-50.1) L 12/07/18 04:22 Plt Count 122 K/mcL (140-400) L 12/07/18 04:22 Monocytes # 1.4 K/mcL (0.0-1.3) H 12/06/18 19:45 PT 12.3 Seconds (9.4-12.1) H 12/07/18 04:22 Potassium 3.4 mEq/L (3.5-5.1) L 12/06/18 19:45 Chloride 109 mEq/L (98-107) H 12/07/18 04:22 Carbon Dioxide 22 mEq/L (23-29) L 12/07/18 04:22 Glucose 109 mg/dL (70-105) H 12/07/18 04:22 Calcium 8.4 mg/dL (8.6-10.3) L 12/07/18 04:22 Urine Clarity Cloudy (Clear) A 12/06/18 20:35 Ur Specific [place] 1.030 (1.010-1.025) H 12/06/18 20:35 Urine Protein 30 mg/dL (Neg-Trace) H 12/06/18 20:35 Urine Bilirubin Small (Negative) H 12/06/18 20:35 Ur Leukocyte Esterase Moderate (Negative) H 12/06/18 20:35 Urine Microscopic RBC 3-5 per hpf (0-3) H 12/06/18 20:35 Urine Microscopic WBC 50-100 per hpf (0-3) H 12/06/18 20:35 Urine Bacteria Moderate per hpf (None-Few) H 12/06/18 20:35 Hyaline Casts Moderate per lpf (None-Few) H 12/06/18 20:35 Diabetes panel 12/06/18 12/07/18 Range/Units 19:45 04:22 Sodium 138 139 (136-145) mEq/L Potassium 3.4 L 3.5 (3.5-5.1) mEq/L Chloride 106 109 H (98-107) mEq/L Carbon Dioxide 26 22 L (23-29) mEq/L BUN 11 13 (6-20) mg/dL Creatinine 1.11 1.02 (0.70-1.30) mg/dL Glucose 124 H 109 H (70-105) mg/dL Calcium 9.5 8.4 L (8.6-10.3) mg/dL AST 19 (13-39) Units/L ALT 23 (7-52) Units/L Alkaline Phosphatase 44 (34-104) Units/L Albumin 4.4 (3.5-5.7) g/dL Calcium panel 12/06/18 12/07/18 Range/Units 19:45 04:22 Calcium 9.5 8.4 L (8.6-10.3) mg/dL Albumin 4.4 (3.5-5.7) g/dL Pituitary panel 12/06/18 12/07/18 Range/Units 19:45 04:22 Sodium 138 139 (136-145) mEq/L Potassium 3.4 L 3.5 (3.5-5.1) mEq/L Chloride 106 109 H (98-107) mEq/L Carbon Dioxide 26 22 L (23-29) mEq/L BUN 11 13 (6-20) mg/dL Creatinine 1.11 1.02 (0.70-1.30) mg/dL Glucose 124 H 109 H (70-105) mg/dL Calcium 9.5 8.4 L (8.6-10.3) mg/dL Adrenal panel 12/06/18 12/07/18 Range/Units 19:45 04:22 Sodium 138 139 (136-145) mEq/L Potassium 3.4 L 3.5 (3.5-5.1) mEq/L Chloride 106 109 H (98-107) mEq/L Carbon Dioxide 26 22 L (23-29) mEq/L BUN 11 13 (6-20) mg/dL Creatinine 1.11 1.02 (0.70-1.30) mg/dL Glucose 124 H 109 H (70-105) mg/dL Calcium 9.5 8.4 L (8.6-10.3) mg/dL Total Bilirubin 0.6 (0.3-1.0) mg/dL AST 19 (13-39) Units/L ALT 23 (7-52) Units/L Alkaline Phosphatase 44 (34-104) Units/L Albumin 4.4 (3.5-5.7) g/dL All other labs normal. - Imaging CT scan - abdomen: report reviewed, image reviewed CT scan - pelvis: report reviewed, image reviewed Consult Discharge Plan - Plan Referrals: Kristen Tripp MD [Primary Care Provider] -
[2018-12-07] MEDS: CANNABIDIOL PO SCH ×2 (11:39→23:29)
--- NOTE | 2018-12-07 13:25 | Internal Med Progress Note ---
<Maritza Khan L - Last Filed: 12/07/18 14:49> Hospitalist Progress Note - Encounter Date of Encounter: 12/07/18 Time of Encounter: 09:00 - Subjective Interval History: Patient seen and examined at beside in the presence of mother. patient states the pain medication helps some, but he still has some pain. Pain is located in h is back and abdomen. - Exam Vitals: Temp Pulse Resp BP Pulse Ox 97.6 F 78 14 97/62 100 12/07/18 10:48 12/07/18 10:48 12/07/18 10:48 12/07/18 10:48 12/07/18 10:48 Exam: Constitutional: Alert, in mild distress 2/2 to acute pain Head: Normocephalic, atraumatic Heart: Normal, regular rate and rhythm, no murmurs Lungs: Clear to auscultation, no wheezes, rales, or rhonchi Abdomen: CVA tenderness bilaterally, tenderness midline to RUQ, Soft, nondistended, bowel sounds present and normal, no guarding or rigidity. Extremities: no edema b/l in lower extremities, b/l lower extremities contracted, radial pulse +2/4, capillary refill <2sec. Skin: Skin warm and dry, no lesions, no rashes, no jaundice Neurologic: Cooperative with exam, good eye contact. - Assessment and Plan (1) Calculus of kidney Current Visit: Yes Status: Acute Assessment and Plan: Staghorn renal calculi of right kidney. - CT shows no signs of hydronephrosis labs indicate no signs of renal failure. - Ketorolac 30mg Q6PRN for mild to moderate pain. - Oxycodone 10 mg by mouth Q4H PRN - After contact with 3A pharmacist discontinue tramadol as a lowers seizure threshold. Appreciate urology Recs: - continue with pain control, fluid resuscitation and await blood cultures. - The family wishes to become established with Dr. Alcaraz, and we will arrange an outpatient follow-up to discuss definitive stone extraction with Dr. Alcaraz. (2) Pyelonephritis Current Visit: Yes Status: Acute Assessment and Plan: Completed rate went of Rocephin 1 mg (3) Epilepsy Current Visit: Yes Status: Chronic Assessment and Plan: Current home medications. DVT Prophylaxis: Heparin subcutaneous discontinue Monday midnight - Time Spent with Patient Total time spent is greater than 50% in coordination of care (as documented) at patient's floor/unit and/or counseling patient: Internal Medicine: Result - Labs CBC & Chem 7: 12/07/18 04:22 12/07/18 04:22 Labs: Short CBC 12/06/18 12/07/18 Range/Units 19:45 04:22 WBC 11.2 H 9.1 (4.3-11.1) K/mcL Hgb 13.0 10.1 L D (12.9-16.9) g/dL Hct 37.9 30.0 L (37.5-50.1) % Plt Count 152 122 L (140-400) K/mcL Neutrophils # 7.5 5.7 (1.6-8.9) K/mcL BMP 12/06/18 12/07/18 19:45 04:22 Sodium 138 139 Potassium 3.4 L 3.5 Chloride 106 109 H Carbon Dioxide 26 22 L BUN 11 13 Creatinine 1.11 1.02 Glucose 124 H 109 H Calcium 9.5 8.4 L Liver Function 12/06/18 Range/Units 19:45 Total Bilirubin 0.6 (0.3-1.0) mg/dL AST 19 (13-39) Units/L ALT 23 (7-52) Units/L Alkaline Phosphatase 44 (34-104) Units/L Albumin 4.4 (3.5-5.7) g/dL Urine 12/06/18 Range/Units 20:35 Urine Color Dark Yellow (Yellow) Urine Clarity Cloudy A (Clear) Urine pH 7.5 (5.0-8.0) pH Units Ur Specific [place] 1.030 H (1.010-1.025) Urine Protein 30 H (Neg-Trace) mg/dL Urine Glucose (UA) Normal (Normal) mg/dL - ABG Interpretation ABG results: PT/INR, D-dimer PT 12.3 Seconds (9.4-12.1) H 12/07/18 04:22 - Impressions Impressions Abdomen/Pelvis CT 12/06/18 19:43 IMPRESSION: Hyperdensity within the right renal calices is most concerning for a renal calculus, potentially representing a staghorn renal calculus. No evidence of ureteral calculus. No evidence of hydronephrosis. Follow-up with urology is recommended. 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 Lesser degree of right hip dysplasia is also noted. Chronic bilateral pars defects at L5. No significant spondylolisthesis. Multiple hypodense renal lesions bilaterally are not completely characterized on this examination. This is most likely renal cysts. This can be confirmed with renal ultrasound non-emergently. D/ / 12/06/2018 22:04:21 Pranay Stone MD / rhodaay Interpreting Provider: Pranay Stone MD Consult Discharge Plan - Plan Referrals: Kristen Tripp MD [Primary Care Provider] - <Srinivasan Castillo - Last Filed: 12/07/18 15:55> Hospitalist Progress Note - Encounter Date of Encounter: 12/07/18 - Exam Vitals: Temp Pulse Resp BP Pulse Ox 98.0 F 83 16 115/75 100 12/07/18 15:19 12/07/18 15:19 12/07/18 15:19 12/07/18 15:19 12/07/18 15:19 - Assessment and Plan (1) Acute pyelonephritis Current Visit: Yes Status: Acute (2) Staghorn calculus Current Visit: Yes Status: Acute (3) Renal colic Current Visit: Yes Status: Acute (4) Epilepsy Current Visit: Yes Status: Chronic (5) Cerebral palsy Current Visit: Yes Status: Chronic - Time Spent with Patient Total time spent is greater than 50% in coordination of care (as documented) at patient's floor/unit and/or counseling patient: Internal Medicine: Result - Labs CBC & Chem 7: 12/07/18 04:22 12/07/18 04:22 Labs: Short CBC 12/06/18 12/07/18 Range/Units 19:45 04:22 WBC 11.2 H 9.1 (4.3-11.1) K/mcL Hgb 13.0 10.1 L D (12.9-16.9) g/dL Hct 37.9 30.0 L (37.5-50.1) % Plt Count 152 122 L (140-400) K/mcL Neutrophils # 7.5 5.7 (1.6-8.9) K/mcL BMP 12/06/18 12/07/18 19:45 04:22 Sodium 138 139 Potassium 3.4 L 3.5 Chloride 106 109 H Carbon Dioxide 26 22 L BUN 11 13 Creatinine 1.11 1.02 Glucose 124 H 109 H Calcium 9.5 8.4 L Liver Function 12/06/18 Range/Units 19:45 Total Bilirubin 0.6 (0.3-1.0) mg/dL AST 19 (13-39) Units/L ALT 23 (7-52) Units/L Alkaline Phosphatase 44 (34-104) Units/L Albumin 4.4 (3.5-5.7) g/dL Urine 12/06/18 Range/Units 20:35 Urine Color Dark Yellow (Yellow) Urine Clarity Cloudy A (Clear) Urine pH 7.5 (5.0-8.0) pH Units Ur Specific [place] 1.030 H (1.010-1.025) Urine Protein 30 H (Neg-Trace) mg/dL Urine Glucose (UA) Normal (Normal) mg/dL - ABG Interpretation ABG results: PT/INR, D-dimer PT 12.3 Seconds (9.4-12.1) H 12/07/18 04:22 - Impressions Impressions Abdomen/Pelvis CT 12/06/18 19:43 IMPRESSION: Hyperdensity within the right renal calices is most concerning for a renal calculus, potentially representing a staghorn renal calculus. No evidence of ureteral calculus. No evidence of hydronephrosis. Follow-up with urology is recommended. 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 Lesser degree of right hip dysplasia is also noted. Chronic bilateral pars defects at L5. No significant spondylolisthesis. Multiple hypodense renal lesions bilaterally are not completely characterized on this examination. This is most likely renal cysts. This can be confirmed with renal ultrasound non-emergently. D/ / 12/06/2018 22:04:21 Pranay Stone MD / rhodaay Interpreting Provider: Pranay Stone MD - Attending Attestation I examined this patient and my medical decision-making was reviewed with the Resident Physician on 12/07/18. I agree with the documented findings, disposition and treatment plan as described except to the extent set forth below. Mr Mougey is currently admitted for presumed UTI due to calculus. He remains moderate to high risk due to potential for worsening clinical status. Mr Claros is resting at this time. His pain is somewhat better. BP has been lower all day. Cx pending. Exam: Alert. NC. Comfortable. EOMI. Mucus membranes dry. Neck supple. Heart reg. No wheeze. Abd soft. No edema No rash. Plan: Continue IV abx. Monitor BP. Await blood cx. Probable d/c home tomorrow. <Srinivasan Castillo - Last Filed: 12/07/18 15:55> (4) Epilepsy Qualifiers: Epilepsy type: other Intractability: not intractable Status epilepticus: without status epilepticus Qualified Code(s): G40.802 - Other epilepsy, not intractable, without status epilepticus (5) Cerebral palsy Qualifiers: Cerebral palsy type: unspecified type Qualified Code(s): G80.9 - Cerebral palsy, unspecified
[2018-12-07] MEDS: *HR* OxyCODONE Immed Rel 5 MG TABLET PO PRN (18:38)
[2018-12-07] MEDS ORDERED: Acetaminophen IV 1,000 MG/100 ML INFUS..BTL IVPB ONE (20:46)
[2018-12-07] MEDS: BRIVARACETAM 150 MG PO SCH (23:28)
[2018-12-08] MEDS: Ketorolac 30 MG/ML VIAL IVP PRN (09:15)
[2018-12-08] MEDS: cefTRIAXone 1,000 MG in Water for inj. (sterile) 10 ML IVP SCH (09:15)
[2018-12-08] MEDS: Loratadine 10 MG TABLET PO SCH (09:15)
[2018-12-08] MEDS: clonazePAM 0.5 MG TABLET PO SCH (09:15)
[2018-12-08] MEDS: CANNABIDIOL PO SCH (09:17)
[2018-12-08] MEDS: BRIVARACETAM 150 MG PO SCH (09:17)
[2018-12-08 09:45] LABS: Basophils % 0.2 %; Eosinophils # 0.1 K/mcL (0.0-0.6); Eosinophils % 0.9 %; Hematocrit 35.5 % (37.5-50.1); Immature Granulocytes % 0.4 % (0-4); Lymphocytes # 1.3 K/mcL (0.6-4.6); Lymphocytes % 13.1 %; Mean Corpuscular HGB Conc 33.5 g/dL (31.6-35.5); Mean Corpuscular Hemoglobin 31.1 pg (28.0-33.3); Mean Corpuscular Volume 92.7 fL (83.0-100.0); Mean Platelet Volume 9.7 fL (9.4-12.4); Monocytes # 0.7 K/mcL (0.0-1.3); Monocytes % 7.6 %; Neutrophils # 7.4 K/mcL (1.6-8.9); Platelet Count 138 K/mcL (140-400); Red Blood Count 3.83 M/mcL (4.19-5.50); Red Cell Distribution Width 11.5 % (11.5-14.5); Segmented Neutrophils % 77.8 %; White Blood Count 9.6 K/mcL (4.3-11.1)
[2018-12-08 09:53] LABS: Hemoglobin 11.9 g/dL (12.9-16.9)
[2018-12-08 10:05] VITALS: BP 122/79
[2018-12-08 10:06] LABS: BUN/Creatinine Ratio 13 (6-26); Blood Urea Nitrogen 12 mg/dL (6-20); Calcium 9.5 mg/dL (8.6-10.3); Carbon Dioxide 22 mEq/L (23-29); Chloride 110 mEq/L (98-107); Glucose 97 mg/dL (70-105); Osmolality,Calculated 290 (280-300); Potassium 4.1 mEq/L (3.5-5.1); Sodium 140 mEq/L (136-145); eGFR For African Americans > 60 (> 60); eGFR For Non-African Americans > 60 (> 60)
--- NOTE | 2018-12-08 10:42 | Discharge Summary ---
- NOTES TO OUTPATIENT PROVIDER Notes to Outpatient Provider: Admitted with pyelonephritis and Staghorn calculus. He is discharged home on PO abx with plans to follow with Dr. Alcaraz for further surgery. Orders not resulted at time of discharge: Pending orders 12/06/18 20:35 Culture,Urine [RM] Stat 12/06/18 21:51 Culture,Blood [BC] Stat Date of Encounter: 12/08/18 Time of Encounter: 10:38 - Discharge Diagnosis (1) Acute pyelonephritis Priority: Primary Status: Acute (2) Staghorn calculus Priority: Secondary Status: Acute (3) Renal colic Priority: Secondary Status: Acute (4) Epilepsy Priority: Secondary Status: Chronic Qualifiers: Epilepsy type: other Intractability: not intractable Status epilepticus: without status epilepticus Qualified Code(s): G40.802 - Other epilepsy, not intractable, without status epilepticus (5) Cerebral palsy Priority: Secondary Status: Chronic Qualifiers: Cerebral palsy type: unspecified type Qualified Code(s): G80.9 - Cerebral palsy, unspecified Hospital course: Mr. Claros is a 28 year old male with hx of cerebral palsy presented to ED with flank pain due kidney stone. He had recently had multiple procedures at another hospital. He was subsequently admitted. Mr Claros was admitted to med surg. He was given IV fluids and IV abx. He was evaluated by urology with plans for further outpatient evaluation by Dr. Alcaraz. He initially had issues with low BP which improved overnight. Today he is afebrile. He is at baseline. He is tolerating IV Ceftriaxone with improvement. Blood cx neg thus far. He is afebrile and ready for discharge home with outpatient follow up. I will notify if cultures return positive and abx needs changed. - Time Spent with Patient Total time spent providing and/or coordinating discharge services: 32min - Discharge Medications Prescriptions: New Cefdinir [Omnicef] 300 mg PO BID #14 capsule OxyCODONE Immed Rel [Roxicodone 5 MG] 10 mg PO Q4H PRN 4 Days #20 tablet PRN Reason: Severe Pain Continued Tizanidine [Zanaflex] 4 mg PO HS Ondansetron [Zofran] 4 mg PO Q8HR PRN PRN Reason: Nausea Multivitamin [Flintstones] 1 each PO DAILY LORazepam [Ativan] 2 mg PO TID PRN PRN Reason: seizures/anxiety Briviact 150 mg PO BID Divalproex (24 HR) [Depakote ER (24 HR)] 1,250 mg PO HS Klonopin 0.5 mg PO BID Loratadine 10 mg PO DAILY Mirabegron 50 mg PO Q24H Epidiolex 4.5 ml PO BID Ibuprofen [Ibu] 800 mg PO BID PRN PRN Reason: Pain Acetaminophen [Tylenol] 650 mg PO Q6HR PRN PRN Reason: Pain Topiramate [Trokendi Xr] 150 mg PO HS Home Medications: LORazepam [Ativan] 2 mg PO TID PRN 01/21/15 [History] Multivitamin [Flintstones] 1 each PO DAILY 01/21/15 [History] Ondansetron [Zofran] 4 mg PO Q8HR PRN 01/21/15 [History] Tizanidine [Zanaflex] 4 mg PO HS 01/21/15 [History] Acetaminophen [Tylenol] 650 mg PO Q6HR PRN 12/07/18 [History] Briviact 150 mg PO BID 12/07/18 [History] Divalproex (24 HR) [Depakote ER (24 HR)] 1,250 mg PO HS 12/07/18 [History] Epidiolex 4.5 ml PO BID 12/07/18 [History] Ibuprofen [Ibu] 800 mg PO BID PRN 12/07/18 [History] Klonopin 0.5 mg PO BID 12/07/18 [History] Loratadine 10 mg PO DAILY 12/07/18 [History] Mirabegron 50 mg PO Q24H 12/07/18 [History] Topiramate [Trokendi Xr] 150 mg PO HS 12/07/18 [History] Cefdinir [Omnicef] 300 mg PO BID #14 capsule 12/08/18 [Rx] OxyCODONE Immed Rel [Roxicodone 5 MG] 10 mg PO Q4H PRN 4 Days #20 tablet 12/08/18 [Rx] Allergies/Adverse Reactions: Allergy/AdvReac Type Severity Reaction Status Date / Time acetaminophen [From Percocet] Allergy Mild ITCHING Verified 01/21/15 07:39 HIVES oxycodone [From Percocet] Allergy Mild ITCHING Verified 01/21/15 07:39 HIVES Buspirone [From BuSpar] Allergy Unknown HIVES Verified 01/21/15 07:39 AGITATION INCREASED BP carbamazepine [From Tegretol] Allergy Unknown HIVES Verified 01/21/15 07:39 AGITATION INCREASED BP citalopram [From Celexa] Allergy Unknown HIVES Verified 01/21/15 07:39 AGITATION INCREASED BP diazepam [From Valium] Allergy Unknown HIVES Verified 01/21/15 07:39 AGITATION INCREASED BP hydromorphone [From Dilaudid] Allergy Unknown DECREASED Verified 01/21/15 07:39 BP RESPITORY DISTRESS lacosamide [From Vimpat] Allergy Unknown HIVES Verified 01/21/15 07:39 AGITATION INCREASED BP lamotrigine [From Lamictal] Allergy Unknown HIVES Verified 01/21/15 07:39 AGITATION INCREASED BP morphine Allergy Unknown HIVES Verified 01/21/15 07:39 INCREASED BP RESPITORY DISTRESS Date of admission: 12/06/18 22:19 Primary care physician: Kristen Tripp MD Consults: 12/06/18 21:35 Consult to Urology [CONS] Stat Consulting Provider: Urology Desiree Reason for Consult: renal colic, recent ureteral stents Time Notified: 21:35 Call Completed: Yes Discharging clinician: Srinivasan Castillo Anticipated date of discharge: 12/08/18 - Constitutional Vitals: Temp Pulse Resp BP Pulse Ox 99.0 F 107 15 122/79 97 12/08/18 10:04 12/08/18 10:04 12/08/18 10:04 12/08/18 10:04 12/08/18 10:04 Exam: See below - Head Head exam: Present: normocephalic - Eye Eye exam: Present: EOMI, conjuntiva pink - ENT ENT exam: Present: mucous membranes moist - Respiratory Respiratory exam: Present: CTAB. Absent: rales, rhonchi, wheezes - Cardiovascular Cardiovascular exam: Present: RRR. Absent: tachycardia - GI/Abdominal GI/Abdominal exam: Present: soft. Absent: tenderness - Extremities Exam Extremities exam: Present: warm. Absent: tenderness - Neurological Exam Neurological exam: Present: alert - Skin Skin exam: Present: dry, warm - Patient Status Disposition: Home, Self-Care Condition: Fair Functional capacity at discharge: wheelchair bound Overall status at discharge: patient is progressing back to baseline - Discharge Instructions Instructions: Urinary Tract Infection in Men (DC) Follow Up With: Kristen Tripp MD [Primary Care Provider] - - Diet and Activity Activity: resume usual activities as tolerated Diet: advance to your usual diet
[2018-12-08] MEDS: *HR* OxyCODONE Immed Rel 5 MG TABLET PO PRN (11:01)
--- NOTE | 2018-12-10 13:34 | Event Note ---
Date of Encounter: 12/10/18 Time of Encounter: 13:33 Urine culture returned E faecalis. Will change to Amoxicillin 500mg TID - 10 days sent to [facility] in [place]. Mother, Isela, called.
== END 2018-12-08 12:26 | disposition home or self-care (01) ==
LOC: EMEROOARM 19:18 → 3ANU 19:18 → SUATTDRO 22:19 → 3ANU 23:24
PROVIDERS: ADMIT Internal Medicine; ATTEND Internal Medicine

== ENCOUNTER 2018-12-25 13:58 | Inpatient (IN) ==
[2018-12-25] MEDS ORDERED: *HR* HYDROmorphone (PF) 1 MG/ML SYRINGE IVP ONE (14:41)
[2018-12-25] MEDS ORDERED: Isovue-370 500 ML BOTTLE IVP ONE (14:59)
[2018-12-25] MEDS: 0.9 % Sodium Chloride 1,000 ML IVC SCH ×3 (15:02→20:53)
[2018-12-25] MEDS ORDERED: *HR* Promethazine 25 MG/ML VIAL IVP STA (15:11)
[2018-12-25 15:16] LABS: Basophils % 0.1 %; Eosinophils # 0.1 K/mcL (0.0-0.6); Eosinophils % 1.1 %; Hematocrit 31.3 % (37.5-50.1); Hemoglobin 10.7 g/dL (12.9-16.9); Immature Granulocytes % 0.5 % (0-4); Lymphocytes # 1.1 K/mcL (0.6-4.6); Lymphocytes % 13.2 %; Mean Corpuscular HGB Conc 34.2 g/dL (31.6-35.5); Mean Corpuscular Hemoglobin 31.8 pg (28.0-33.3); Mean Corpuscular Volume 92.9 fL (83.0-100.0); Mean Platelet Volume 9.8 fL (9.4-12.4); Monocytes # 0.8 K/mcL (0.0-1.3); Monocytes % 9.3 %; Neutrophils # 6.2 K/mcL (1.6-8.9); Platelet Count 221 K/mcL (140-400); Red Blood Count 3.37 M/mcL (4.19-5.50); Segmented Neutrophils % 75.8 %; White Blood Count 8.2 K/mcL (4.3-11.1)
[2018-12-25 15:19] LABS: VBG HCO3 24 mEq/L (21-27); VBG PCO2 40 mmHg (41-51); VBG PH 7.38 pH Units (7.32-7.42); VBG PO2 83 mmHg (25-50)
[2018-12-25 15:34] LABS: Alanine Aminotransferase 41 Units/L (7-52); Albumin 3.8 g/dL (3.5-5.7); Albumin/Globulin Ratio 1.3 (1.1-2.2); Alkaline Phosphatase 36 Units/L (34-104); Aspartate Amino Transferase 41 Units/L (13-39); BUN/Creatinine Ratio 27 (6-26); Bilirubin,Direct 0.1 mg/dL (0.0-0.2); Bilirubin,Indirect 0.4 mg/dL (0.0-1.2); Bilirubin,Total 0.5 mg/dL (0.3-1.0); Blood Urea Nitrogen 22 mg/dL (6-20); Calcium 9.2 mg/dL (8.6-10.3); Carbon Dioxide 26 mEq/L (23-29); Chloride 103 mEq/L (98-107); Globulin 2.9 g/dL (2.4-3.5); Glucose 95 mg/dL (70-105); Lipase 18 Units/L (11-82); Magnesium 1.7 mg/dL (1.6-2.6); Osmolality,Calculated 293 (280-300); Phosphorous 3.9 mg/dL (2.7-4.5); Potassium 3.2 mEq/L (3.5-5.1); Sodium 140 mEq/L (136-145); Total Protein 6.7 g/dL (6.4-8.9); eGFR For African Americans > 60 (> 60); eGFR For Non-African Americans > 60 (> 60)
[2018-12-25 15:40] LABS: Bilirubin,Urine Small (Negative); Blood,Urine Large (Negative); Clarity,Urine Cloudy (Clear); Glucose,Urine (UA) Normal (Normal); Ketones,Urine Trace mg/dL (Negative); Leukocyte Esterase,Urine Moderate (Negative); Nitrite,Urine Negative (Negative); Protein,Urine 100 mg/dL (Neg-Trace); Urobilinogen,Urine Normal (Normal)
[2018-12-25 15:42] LABS: Bacteria,Urine None Seen per hpf (None-Few); Hyaline Casts,Urine None Seen per lpf (None-Few); RBC,Urine TNTC per hpf (0-3); Squamous Epithelial Cell,Urine Moderate per lpf (None-Few); WBC,Urine TNTC per hpf (0-3)
[2018-12-25 15:45] LABS: Color,Urine Dark Yellow (Yellow)
[2018-12-25] MEDS ORDERED: Piperacillin/Tazobactam 3.375 GM in Water for inj. (sterile) 20 ML IVP ONE (15:56)
[2018-12-25] MEDS ORDERED: Piperacillin/Tazobactam 3.375 GM in 0.9 % Sodium Chloride Mini Bag 100 ML IVPB ONE (16:03)
[2018-12-25] MEDS ORDERED: *HR* LORazepam 2 MG/ML VIAL IVP ONE (16:15)
[2018-12-25] MEDS ORDERED: DIPHENHYDRAMINE HCL 50 MG PO PRN (17:03)
[2018-12-25] MEDS ORDERED: *HR* OxyCODONE Immed Rel 5 MG TABLET PO PRN (17:03)
[2018-12-25] MEDS ORDERED: Naloxone 0.4 MG/ML INJ IVP PRN (17:08)
[2018-12-25] MEDS ORDERED: Ondansetron 4 MG/2 ML VIAL IVP PRN (17:08)
[2018-12-25] MEDS ORDERED: *HR* Heparin 5,000 UNIT/ML VIAL SQ SCH (18:00)
[2018-12-25] MEDS ORDERED: *HR* LORazepam 1 MG TABLET PO PRN (18:43)
[2018-12-25] MEDS ORDERED: Acetaminophen 325 MG TABLET PO ONE (20:50)
[2018-12-25] MEDS: tiZANidine 4 MG TABLET PO SCH (20:54)
[2018-12-25] MEDS: clonazePAM 1 MG TABLET PO SCH (20:54)
[2018-12-25] MEDS: Lactobacillus 1 EACH CAP.SPRINK PO SCH (20:54)
[2018-12-25] MEDS: Divalproex (24 HR) 250 MG TABLET PO SCH (20:54)
[2018-12-25] MEDS ORDERED: BRIVARACETAM 150 MG PO SCH (21:00)
[2018-12-25] MEDS: *HR* OxyCODONE Immed Rel 5 MG TABLET PO PRN (21:03)
[2018-12-25] MEDS: CANNABIDIOL PO SCH (21:54)
[2018-12-25] MEDS: BRIVARACETAM 150 MG PO SCH (21:54)
[2018-12-25] MEDS: Piperacillin/Tazobactam 3.375 GM in 0.9 % Sodium Chloride Mini Bag 100 ML IVPB SCH (23:56)
[2018-12-26 01:05] LABS: Basophils % 0.3 %; Eosinophils # 0.1 K/mcL (0.0-0.6); Eosinophils % 0.8 %; Hematocrit 27.7 % (37.5-50.1); Hemoglobin 9.2 g/dL (12.9-16.9); Immature Granulocytes % 0.5 % (0-4); Lymphocytes # 0.8 K/mcL (0.6-4.6); Mean Corpuscular HGB Conc 33.2 g/dL (31.6-35.5); Mean Corpuscular Hemoglobin 31.2 pg (28.0-33.3); Mean Corpuscular Volume 93.9 fL (83.0-100.0); Mean Platelet Volume 10.9 fL (9.4-12.4); Monocytes # 0.8 K/mcL (0.0-1.3); Monocytes % 9.9 %; Platelet Count 188 K/mcL (140-400); Red Blood Count 2.95 M/mcL (4.19-5.50); Red Cell Distribution Width 12.1 % (11.5-14.5); Segmented Neutrophils % 78.5 %; White Blood Count 7.7 K/mcL (4.3-11.1)
[2018-12-26 01:22] LABS: BUN/Creatinine Ratio 20 (6-26); Blood Urea Nitrogen 14 mg/dL (6-20); Calcium 8.3 mg/dL (8.6-10.3); Carbon Dioxide 22 mEq/L (23-29); Chloride 108 mEq/L (98-107); Glucose 135 mg/dL (70-105); Magnesium 1.6 mg/dL (1.6-2.6); Osmolality,Calculated 289 (280-300); Potassium 3.1 mEq/L (3.5-5.1); Sodium 138 mEq/L (136-145); eGFR For African Americans > 60 (> 60); eGFR For Non-African Americans > 60 (> 60)
[2018-12-26 01:37] LABS: Platelet Clumps Few (Not Present); Platelet Estimate Normal (Normal)
[2018-12-26] MEDS: Piperacillin/Tazobactam 3.375 GM in 0.9 % Sodium Chloride Mini Bag 100 ML IVPB SCH (07:04)
[2018-12-26] MEDS: 0.9 % Sodium Chloride 1,000 ML IVC SCH ×2 (07:04→17:08)
[2018-12-26] MEDS: *HR* OxyCODONE Immed Rel 5 MG TABLET PO PRN ×4 (08:09→22:31)
[2018-12-26] MEDS: clonazePAM 1 MG TABLET PO SCH ×2 (08:09→22:45)
[2018-12-26] MEDS: CANNABIDIOL PO SCH ×2 (08:10→22:10)
[2018-12-26] MEDS: (Mirabegron [Myrbetriq] 50 MG) PO SCH (08:10)
[2018-12-26] MEDS: BRIVARACETAM 150 MG PO SCH ×2 (08:10→22:11)
[2018-12-26] MEDS ORDERED: Potassium Chloride Elixir 20 MEQ/15 ML UDC PO ONE (09:01)
[2018-12-26] MEDS: Vancomycin Oral Soln 125 MG/2.5 ML UDC PO SCH ×3 (12:30→22:10)
[2018-12-26] MEDS ORDERED: Aminoglycoside Consult 1 EACH MC ONE (16:28)
[2018-12-26] MEDS: MetroNIDAZOLE 500 MG/100 ML 500 MG/100 ML BAG IVPB SCH ×3 (17:09→23:44)
[2018-12-26] MEDS: Lactobacillus 1 EACH CAP.SPRINK PO SCH (17:10)
[2018-12-26] MEDS: tiZANidine 4 MG TABLET PO SCH (17:10)
[2018-12-26] MEDS: *HR* Promethazine 25 MG/ML VIAL IVP PRN (17:23)
[2018-12-26] MEDS: Acetaminophen 325 MG TABLET PO PRN (17:23)
[2018-12-26 18:53] LABS: Campylobacter by PCR Not detected (Not detect); Plesiomonas shigelloides PCR Not detected (Not detect); Salmonella PCR Not detected (Not detect); Vibrio PCR Not detected (Not detect); Vibrio cholerae PCR Not detected (Not detect); Yersinia enterocolitica PCR Not detected (Not detect)
[2018-12-26 18:54] LABS: Adenovirus F 40/41 PCR Not detected (Not detect); Astrovirus PCR Not detected (Not detect); Cryptosporidium by PCR Not detected (Not detect); Cyclospora cayetanensis PCR Not detected (Not detect); E. coli O157 by PCR Not detected (Not detect); Entamoeba histolytica PCR Not detected (Not detect); Enteroaggregative E.coli(EAEC) Not detected (Not detect); Enteropathogenic E.coli(EPEC) DETECTED (Not detect); Enterotoxigenic E.coli (ETEC) Not detected (Not detect); Giardia lamblia PCR Not detected (Not detect); Norovirus GI/GII PCR Not detected (Not detect); Rotavirus A PCR Not detected (Not detect); Sapovirus PCR Not detected (Not detect); Shig/EnteroinvasiveE coli EIEC Not detected (Not detect); Shigalike tox-prod E coli STEC Not detected (Not detect)
[2018-12-26 18:55] LABS: C.difficile Toxin A/B Gene PCR DETECTED (Not detect)
[2018-12-26] MEDS: Divalproex (24 HR) 250 MG TABLET PO SCH (22:10)
[2018-12-27] MEDS: *HR* OxyCODONE Immed Rel 5 MG TABLET PO PRN ×4 (03:44→19:48)
[2018-12-27] MEDS: 0.9 % Sodium Chloride 1,000 ML IVC SCH (05:18)
[2018-12-27] MEDS: *HR* LORazepam 2 MG/ML VIAL IVP PRN ×2 (05:38→14:40)
[2018-12-27 06:34] LABS: Hematocrit 29.6 % (37.5-50.1); Hemoglobin 9.5 g/dL (12.9-16.9); Mean Corpuscular HGB Conc 32.1 g/dL (31.6-35.5); Mean Corpuscular Hemoglobin 31.6 pg (28.0-33.3); Mean Corpuscular Volume 98.3 fL (83.0-100.0); Mean Platelet Volume 9.9 fL (9.4-12.4); Platelet Count 184 K/mcL (140-400); Red Blood Count 3.01 M/mcL (4.19-5.50); Red Cell Distribution Width 12.3 % (11.5-14.5); White Blood Count 7.4 K/mcL (4.3-11.1)
[2018-12-27 06:55] LABS: BUN/Creatinine Ratio 13 (6-26); Blood Urea Nitrogen 8 mg/dL (6-20); Calcium 8.4 mg/dL (8.6-10.3); Carbon Dioxide 24 mEq/L (23-29); Chloride 109 mEq/L (98-107); Glucose 95 mg/dL (70-105); Osmolality,Calculated 292 (280-300); Potassium 3.4 mEq/L (3.5-5.1); Sodium 142 mEq/L (136-145); eGFR For African Americans > 60 (> 60); eGFR For Non-African Americans > 60 (> 60)
[2018-12-27] MEDS: MetroNIDAZOLE 500 MG/100 ML 500 MG/100 ML BAG IVPB SCH (09:09)
[2018-12-27] MEDS: BRIVARACETAM 150 MG PO SCH ×2 (09:10→21:32)
[2018-12-27] MEDS: CANNABIDIOL PO SCH ×2 (09:10→21:28)
[2018-12-27] MEDS: Vancomycin Oral Soln 125 MG/2.5 ML UDC PO SCH ×4 (09:10→21:27)
[2018-12-27] MEDS: clonazePAM 1 MG TABLET PO SCH ×2 (09:10→21:32)
[2018-12-27] MEDS: (Mirabegron [Myrbetriq] 50 MG) PO SCH (09:11)
[2018-12-27] MEDS ORDERED: Isovue-370 500 ML BOTTLE IVP ONE (10:08)
[2018-12-27] MEDS: *HR* Promethazine 25 MG/ML VIAL IVP PRN ×2 (11:02→18:07)
[2018-12-27] MEDS ORDERED: 0.9 % Sodium Chloride 1,000 ML IVC SCH ×2 (11:30→21:29)
[2018-12-27] MEDS ORDERED: 0.9 % Sodium Chloride w KCl 40 MEQ/1,000 ML MLS IVC SCH (11:30)
[2018-12-27] MEDS: Acetaminophen 325 MG TABLET PO PRN ×2 (14:39→19:48)
[2018-12-27 16:00] LABS: Hematocrit 30.4 % (37.5-50.1); Hemoglobin 10.1 g/dL (12.9-16.9)
[2018-12-27] MEDS: Piperacillin/Tazobactam 3.375 GM in 0.9 % Sodium Chloride Mini Bag 100 ML IVPB SCH (16:45)
[2018-12-27] MEDS: tiZANidine 4 MG TABLET PO SCH (18:07)
[2018-12-27] MEDS: Divalproex (24 HR) 250 MG TABLET PO SCH (21:31)
[2018-12-27] MEDS: Lactobacillus 1 EACH CAP.SPRINK PO SCH (21:32)
[2018-12-28] MEDS: Piperacillin/Tazobactam 3.375 GM in 0.9 % Sodium Chloride Mini Bag 100 ML IVPB SCH ×3 (00:12→17:57)
[2018-12-28 00:22] LABS: Basophils % 0.3 %; Eosinophils # 0.2 K/mcL (0.0-0.6); Eosinophils % 2.3 %; Hematocrit 27.2 % (37.5-50.1); Hemoglobin 9.1 g/dL (12.9-16.9); Immature Granulocytes % 0.4 % (0-4); Lymphocytes # 1.4 K/mcL (0.6-4.6); Lymphocytes % 19.9 %; Mean Corpuscular HGB Conc 33.5 g/dL (31.6-35.5); Mean Corpuscular Hemoglobin 31.3 pg (28.0-33.3); Mean Corpuscular Volume 93.5 fL (83.0-100.0); Mean Platelet Volume 9.3 fL (9.4-12.4); Monocytes # 0.7 K/mcL (0.0-1.3); Monocytes % 10.2 %; Neutrophils # 4.6 K/mcL (1.6-8.9); Platelet Count 163 K/mcL (140-400); Red Blood Count 2.91 M/mcL (4.19-5.50); Segmented Neutrophils % 66.9 %; White Blood Count 6.9 K/mcL (4.3-11.1)
[2018-12-28 00:42] LABS: Alanine Aminotransferase 25 Units/L (7-52); Albumin 2.9 g/dL (3.5-5.7); Albumin/Globulin Ratio 1.1 (1.1-2.2); Alkaline Phosphatase 32 Units/L (34-104); Aspartate Amino Transferase 21 Units/L (13-39); BUN/Creatinine Ratio 10 (6-26); Bilirubin,Total 0.6 mg/dL (0.3-1.0); Blood Urea Nitrogen 6 mg/dL (6-20); Calcium 8.2 mg/dL (8.6-10.3); Carbon Dioxide 24 mEq/L (23-29); Chloride 109 mEq/L (98-107); Globulin 2.7 g/dL (2.4-3.5); Glucose 113 mg/dL (70-105); Magnesium 1.9 mg/dL (1.6-2.6); Osmolality,Calculated 296 (280-300); Phosphorous 3.4 mg/dL (2.7-4.5); Potassium 3.5 mEq/L (3.5-5.1); Sodium 144 mEq/L (136-145); Total Protein 5.6 g/dL (6.4-8.9); eGFR For African Americans > 60 (> 60); eGFR For Non-African Americans > 60 (> 60)
[2018-12-28] MEDS: *HR* OxyCODONE Immed Rel 5 MG TABLET PO PRN ×3 (04:03→17:57)
[2018-12-28 05:05] LABS: Hematocrit 29.5 % (37.5-50.1)
[2018-12-28] MEDS ORDERED: D5% in Water 1,000 ML IVC PRN ×2 (06:10→12:47)
[2018-12-28] MEDS ORDERED: Dextrose Gel 15 GM/37.5 ML TUBE PO PRN ×4 (06:10→12:47)
[2018-12-28] MEDS ORDERED: *HR* Dextrose 50 % in Water (Syg) 50 ML SYRINGE IVP PRN ×2 (06:10→12:47)
[2018-12-28] MEDS ORDERED: *HR* Metoprolol 5 MG/5 ML VIAL IVP ONE (06:33)
[2018-12-28] MEDS: Lactobacillus 1 EACH CAP.SPRINK PO SCH ×2 (08:42→22:01)
[2018-12-28] MEDS: *HR* LORazepam 2 MG/ML VIAL IVP PRN (08:42)
[2018-12-28] MEDS: Acetaminophen 325 MG TABLET PO PRN ×2 (08:42→14:47)
[2018-12-28] MEDS: clonazePAM 1 MG TABLET PO SCH ×2 (08:42→22:01)
[2018-12-28] MEDS: Vancomycin Oral Soln 125 MG/2.5 ML UDC PO SCH ×4 (08:43→22:03)
[2018-12-28] MEDS: (Mirabegron [Myrbetriq] 50 MG) PO SCH (08:43)
[2018-12-28] MEDS: BRIVARACETAM 150 MG PO SCH ×2 (08:43→22:04)
[2018-12-28 09:06] LABS: Hematocrit 31.3 % (37.5-50.1); Hemoglobin 10.7 g/dL (12.9-16.9)
[2018-12-28] MEDS: CANNABIDIOL PO SCH ×2 (09:50→23:00)
[2018-12-28] MEDS ORDERED: Albuterol 2.5 MG/3 ML NEBULIZER IH ONE (10:33)
[2018-12-28] MEDS ORDERED: Albuterol 2.5 MG/3 ML NEBULIZER ONE (10:41)
[2018-12-28] MEDS ORDERED: Isovue-300 50ML VIAL ONE (10:45)
[2018-12-28] MEDS ORDERED: *HR* FentaNYL (PF) 100 MCG/2 ML VIAL ONE (11:37)
[2018-12-28] MEDS ORDERED: Lidocaine -MPF 2% 2 ML VIAL ONE (11:37)
[2018-12-28] MEDS ORDERED: Ondansetron 4 MG/2 ML VIAL ONE (11:37)
[2018-12-28] MEDS ORDERED: *HR* Midazolam HCl 2 MG/2 ML VIAL ONE (11:37)
[2018-12-28] MEDS ORDERED: *HR* Propofol 200 MG/20 ML VIAL IVP ONE (11:37)
[2018-12-28] MEDS ORDERED: Dexamethasone 4 MG/ML VIAL ONE (11:37)
[2018-12-28] MEDS ORDERED: Naloxone 0.4 MG/ML INJ IVP PRN (12:47)
[2018-12-28] MEDS ORDERED: Ondansetron 4 MG/2 ML VIAL IVP PRN (12:47)
[2018-12-28] MEDS ORDERED: *HR* LORazepam 1 MG TABLET PO PRN (12:47)
[2018-12-28 15:09] LABS: Hematocrit 31.7 % (37.5-50.1); Hemoglobin 10.5 g/dL (12.9-16.9)
[2018-12-28] MEDS: tiZANidine 4 MG TABLET PO SCH (17:56)
[2018-12-28] MEDS: Divalproex (24 HR) 250 MG TABLET PO SCH (22:02)
[2018-12-29] MEDS: Piperacillin/Tazobactam 3.375 GM in 0.9 % Sodium Chloride Mini Bag 100 ML IVPB SCH ×4 (02:00→22:49)
[2018-12-29 05:10] LABS: Basophils % 0.1 %; Eosinophils % 0.1 %; Hematocrit 28.9 % (37.5-50.1); Hemoglobin 9.8 g/dL (12.9-16.9); Immature Granulocytes % 0.6 % (0-4); Lymphocytes # 0.6 K/mcL (0.6-4.6); Lymphocytes % 9.4 %; Mean Corpuscular HGB Conc 33.9 g/dL (31.6-35.5); Mean Corpuscular Hemoglobin 31.3 pg (28.0-33.3); Mean Corpuscular Volume 92.3 fL (83.0-100.0); Mean Platelet Volume 9.5 fL (9.4-12.4); Monocytes # 0.6 K/mcL (0.0-1.3); Monocytes % 9.3 %; Neutrophils # 5.5 K/mcL (1.6-8.9); Platelet Count 170 K/mcL (140-400); Red Blood Count 3.13 M/mcL (4.19-5.50); Segmented Neutrophils % 80.5 %; White Blood Count 6.8 K/mcL (4.3-11.1)
[2018-12-29 05:11] LABS: VBG Ionized Calcium 1.24 mmol/L (1.15-1.35)
[2018-12-29 05:29] LABS: BUN/Creatinine Ratio 12 (6-26); Blood Urea Nitrogen 7 mg/dL (6-20); Calcium 8.5 mg/dL (8.6-10.3); Carbon Dioxide 27 mEq/L (23-29); Chloride 108 mEq/L (98-107); Glucose 151 mg/dL (70-105); Osmolality,Calculated 295 (280-300); Potassium 3.5 mEq/L (3.5-5.1); Sodium 142 mEq/L (136-145); eGFR For African Americans > 60 (> 60); eGFR For Non-African Americans > 60 (> 60)
[2018-12-29] MEDS: *HR* OxyCODONE Immed Rel 5 MG TABLET PO PRN ×2 (06:04→22:29)
[2018-12-29] MEDS: clonazePAM 1 MG TABLET PO SCH ×2 (08:52→22:28)
[2018-12-29] MEDS: Lactobacillus 1 EACH CAP.SPRINK PO SCH ×2 (08:52→22:28)
[2018-12-29] MEDS: *HR* Promethazine 25 MG/ML VIAL IVP PRN (08:52)
[2018-12-29] MEDS: Vancomycin Oral Soln 125 MG/2.5 ML UDC PO SCH ×4 (08:53→22:28)
[2018-12-29] MEDS: CANNABIDIOL PO SCH ×3 (08:54→22:47)
[2018-12-29] MEDS: BRIVARACETAM 150 MG PO SCH ×2 (08:54→22:28)
[2018-12-29] MEDS: (Mirabegron [Myrbetriq] 50 MG) PO SCH (08:54)
[2018-12-29 13:42] LABS: Hematocrit 30.3 % (37.5-50.1); Hemoglobin 10.3 g/dL (12.9-16.9)
[2018-12-29] MEDS: Acetaminophen 325 MG TABLET PO PRN (17:05)
[2018-12-29] MEDS: tiZANidine 4 MG TABLET PO SCH (17:06)
[2018-12-29] MEDS: *HR* LORazepam 2 MG/ML VIAL IVP PRN (22:28)
[2018-12-29] MEDS: Divalproex (24 HR) 250 MG TABLET PO SCH (22:28)
[2018-12-30] MEDS: *HR* OxyCODONE Immed Rel 5 MG TABLET PO PRN ×3 (02:45→15:36)
[2018-12-30] MEDS ORDERED: Ringers Solution, Lactated 1,000 ML IVC SCH (07:45)
[2018-12-30 08:22] LABS: Basophils % 0.4 %; Eosinophils # 0.2 K/mcL (0.0-0.6); Eosinophils % 2.4 %; Hemoglobin 9.7 g/dL (12.9-16.9); Immature Granulocytes % 0.6 % (0-4); Lymphocytes # 1.7 K/mcL (0.6-4.6); Mean Corpuscular HGB Conc 32.3 g/dL (31.6-35.5); Mean Corpuscular Hemoglobin 30.7 pg (28.0-33.3); Mean Corpuscular Volume 94.9 fL (83.0-100.0); Mean Platelet Volume 9.4 fL (9.4-12.4); Monocytes # 0.9 K/mcL (0.0-1.3); Monocytes % 10.6 %; Neutrophils # 5.5 K/mcL (1.6-8.9); Platelet Count 165 K/mcL (140-400); Red Blood Count 3.16 M/mcL (4.19-5.50); Red Cell Distribution Width 12.2 % (11.5-14.5); White Blood Count 8.4 K/mcL (4.3-11.1)
[2018-12-30 08:46] LABS: Alanine Aminotransferase 16 Units/L (7-52); Albumin 3.1 g/dL (3.5-5.7); Albumin/Globulin Ratio 1.2 (1.1-2.2); Alkaline Phosphatase 31 Units/L (34-104); Aspartate Amino Transferase 11 Units/L (13-39); BUN/Creatinine Ratio 11 (6-26); Bilirubin,Total 0.3 mg/dL (0.3-1.0); Blood Urea Nitrogen 7 mg/dL (6-20); Calcium 8.6 mg/dL (8.6-10.3); Carbon Dioxide 28 mEq/L (23-29); Chloride 107 mEq/L (98-107); Globulin 2.6 g/dL (2.4-3.5); Glucose 98 mg/dL (70-105); Osmolality,Calculated 296 (280-300); Sodium 144 mEq/L (136-145); Total Protein 5.7 g/dL (6.4-8.9); eGFR For African Americans > 60 (> 60); eGFR For Non-African Americans > 60 (> 60)
[2018-12-30] MEDS: clonazePAM 1 MG TABLET PO SCH ×2 (09:17→21:40)
[2018-12-30] MEDS: Lactobacillus 1 EACH CAP.SPRINK PO SCH ×2 (09:17→21:40)
[2018-12-30] MEDS: Vancomycin Oral Soln 125 MG/2.5 ML UDC PO SCH ×4 (09:17→21:43)
[2018-12-30] MEDS: Piperacillin/Tazobactam 3.375 GM in 0.9 % Sodium Chloride Mini Bag 100 ML IVPB SCH ×2 (09:18→18:01)
[2018-12-30] MEDS: (Mirabegron [Myrbetriq] 50 MG) PO SCH (09:19)
[2018-12-30] MEDS: BRIVARACETAM 150 MG PO SCH ×2 (09:19→21:43)
[2018-12-30] MEDS: CANNABIDIOL PO SCH ×2 (09:55→21:41)
[2018-12-30] MEDS: Acetaminophen 325 MG TABLET PO PRN (11:58)
[2018-12-30] MEDS: *HR* LORazepam 2 MG/ML VIAL IVP PRN (13:43)
[2018-12-30 16:07] LABS: Hemoglobin 9.9 g/dL (12.9-16.9)
[2018-12-30] MEDS: tiZANidine 4 MG TABLET PO SCH (18:01)
[2018-12-30] MEDS: 0.9 % Sodium Chloride 1,000 ML IVC SCH (19:59)
[2018-12-30] MEDS: Divalproex (24 HR) 250 MG TABLET PO SCH (21:40)
[2018-12-30] MEDS: *HR* Promethazine 25 MG/ML VIAL IVP PRN (21:48)
[2018-12-31] MEDS: Piperacillin/Tazobactam 3.375 GM in 0.9 % Sodium Chloride Mini Bag 100 ML IVPB SCH ×4 (00:32→23:54)
[2018-12-31 05:20] LABS: Basophils % 0.5 %; Eosinophils # 0.3 K/mcL (0.0-0.6); Eosinophils % 3.4 %; Hematocrit 31.7 % (37.5-50.1); Hemoglobin 10.3 g/dL (12.9-16.9); Immature Granulocytes % 0.5 % (0-4); Lymphocytes # 1.6 K/mcL (0.6-4.6); Lymphocytes % 21.5 %; Mean Corpuscular HGB Conc 32.5 g/dL (31.6-35.5); Mean Corpuscular Hemoglobin 31.4 pg (28.0-33.3); Mean Corpuscular Volume 96.6 fL (83.0-100.0); Mean Platelet Volume 9.4 fL (9.4-12.4); Monocytes # 1.2 K/mcL (0.0-1.3); Monocytes % 15.8 %; Neutrophils # 4.3 K/mcL (1.6-8.9); Platelet Count 177 K/mcL (140-400); Red Blood Count 3.28 M/mcL (4.19-5.50); Red Cell Distribution Width 12.5 % (11.5-14.5); Segmented Neutrophils % 58.3 %; White Blood Count 7.4 K/mcL (4.3-11.1)
[2018-12-31 05:42] LABS: Alanine Aminotransferase 12 Units/L (7-52); Albumin/Globulin Ratio 1.2 (1.1-2.2); Alkaline Phosphatase 25 Units/L (34-104); Aspartate Amino Transferase 11 Units/L (13-39); BUN/Creatinine Ratio 9 (6-26); Bilirubin,Total 0.4 mg/dL (0.3-1.0); Blood Urea Nitrogen 5 mg/dL (6-20); Calcium 8.7 mg/dL (8.6-10.3); Carbon Dioxide 25 mEq/L (23-29); Chloride 110 mEq/L (98-107); Globulin 2.6 g/dL (2.4-3.5); Glucose 92 mg/dL (70-105); Osmolality,Calculated 295 (280-300); Potassium 3.4 mEq/L (3.5-5.1); Sodium 144 mEq/L (136-145); Total Protein 5.6 g/dL (6.4-8.9); eGFR For African Americans > 60 (> 60); eGFR For Non-African Americans > 60 (> 60)
[2018-12-31] MEDS: Vancomycin Oral Soln 125 MG/2.5 ML UDC PO SCH ×4 (08:43→21:49)
[2018-12-31] MEDS: clonazePAM 1 MG TABLET PO SCH ×2 (08:43→21:48)
[2018-12-31] MEDS: Lactobacillus 1 EACH CAP.SPRINK PO SCH ×2 (08:43→21:48)
[2018-12-31] MEDS: BRIVARACETAM 150 MG PO SCH ×2 (08:44→21:49)
[2018-12-31] MEDS: (Mirabegron [Myrbetriq] 50 MG) PO SCH (08:44)
[2018-12-31] MEDS: Nystatin SUSP 5 ML UD.LIQ PO SCH ×4 (09:44→21:48)
[2018-12-31] MEDS: CANNABIDIOL PO SCH ×2 (09:44→21:49)
[2018-12-31] MEDS: *HR* LORazepam 2 MG/ML VIAL IVP PRN (14:28)
[2018-12-31] MEDS: *HR* OxyCODONE Immed Rel 5 MG TABLET PO PRN (16:16)
[2018-12-31] MEDS: Acetaminophen 325 MG TABLET PO PRN (16:17)
[2018-12-31] MEDS: *HR* Promethazine 25 MG/ML VIAL IVP PRN (17:27)
[2018-12-31] MEDS: tiZANidine 4 MG TABLET PO SCH (19:00)
[2018-12-31] MEDS: Fluconazole 400 MG/200 ML 400 MG/200 ML BAG IVPB SCH (20:33)
[2018-12-31] MEDS: Divalproex (24 HR) 250 MG TABLET PO SCH (21:48)
[2019-01-01 04:34] LABS: Basophils # 0.1 K/mcL (0.0-0.2); Basophils % 0.7 %; Eosinophils # 0.2 K/mcL (0.0-0.6); Eosinophils % 2.8 %; Hematocrit 29.5 % (37.5-50.1); Hemoglobin 9.7 g/dL (12.9-16.9); Immature Granulocytes % 0.8 % (0-4); Lymphocytes # 1.6 K/mcL (0.6-4.6); Lymphocytes % 21.1 %; Mean Corpuscular HGB Conc 32.9 g/dL (31.6-35.5); Mean Corpuscular Hemoglobin 31.5 pg (28.0-33.3); Mean Corpuscular Volume 95.8 fL (83.0-100.0); Mean Platelet Volume 9.4 fL (9.4-12.4); Monocytes # 1.2 K/mcL (0.0-1.3); Monocytes % 15.8 %; Neutrophils # 4.4 K/mcL (1.6-8.9); Platelet Count 165 K/mcL (140-400); Red Blood Count 3.08 M/mcL (4.19-5.50); Red Cell Distribution Width 12.6 % (11.5-14.5); Segmented Neutrophils % 58.8 %; White Blood Count 7.5 K/mcL (4.3-11.1)
[2019-01-01 04:54] LABS: BUN/Creatinine Ratio 10 (6-26); Blood Urea Nitrogen 9 mg/dL (6-20); Calcium 8.8 mg/dL (8.6-10.3); Carbon Dioxide 26 mEq/L (23-29); Chloride 111 mEq/L (98-107); Glucose 108 mg/dL (70-105); Osmolality,Calculated 303 (280-300); Potassium 3.5 mEq/L (3.5-5.1); Sodium 147 mEq/L (136-145); eGFR For African Americans > 60 (> 60); eGFR For Non-African Americans > 60 (> 60)
[2019-01-01] MEDS: Piperacillin/Tazobactam 3.375 GM in 0.9 % Sodium Chloride Mini Bag 100 ML IVPB SCH ×2 (08:35→17:59)
[2019-01-01] MEDS: clonazePAM 1 MG TABLET PO SCH ×2 (08:36→20:47)
[2019-01-01] MEDS: Lactobacillus 1 EACH CAP.SPRINK PO SCH ×2 (08:36→20:48)
[2019-01-01] MEDS: Nystatin SUSP 5 ML UD.LIQ PO SCH ×4 (08:36→20:49)
[2019-01-01] MEDS: Vancomycin Oral Soln 125 MG/2.5 ML UDC PO SCH ×4 (08:37→20:47)
[2019-01-01] MEDS: BRIVARACETAM 150 MG PO SCH ×2 (08:38→20:50)
[2019-01-01] MEDS: (Mirabegron [Myrbetriq] 50 MG) PO SCH (08:38)
[2019-01-01] MEDS: CANNABIDIOL PO SCH ×2 (08:38→20:47)
[2019-01-01] MEDS: *HR* LORazepam 2 MG/ML VIAL IVP PRN ×2 (11:04→16:20)
[2019-01-01] MEDS: *HR* OxyCODONE Immed Rel 5 MG TABLET PO PRN ×2 (11:17→17:34)
[2019-01-01] MEDS: *HR* Promethazine 25 MG/ML VIAL IVP PRN (12:52)
[2019-01-01] MEDS: Ringers Solution, Lactated 1,000 ML IVC SCH (12:52)
[2019-01-01] MEDS ORDERED: Isovue-370 500 ML BOTTLE IVP ONE (13:38)
[2019-01-01] MEDS ORDERED: ISOVUE-370 100 ML INFUS..BTL PO ONE (13:52)
[2019-01-01] MEDS: Acetaminophen 325 MG TABLET PO PRN (16:18)
[2019-01-01] MEDS: tiZANidine 4 MG TABLET PO SCH (17:34)
[2019-01-01] MEDS: Fluconazole 400 MG/200 ML 400 MG/200 ML BAG IVPB SCH (18:03)
[2019-01-01] MEDS: Divalproex (24 HR) 250 MG TABLET PO SCH (20:48)
[2019-01-02] MEDS: *HR* Promethazine 25 MG/ML VIAL IVP PRN ×2 (02:47→14:58)
[2019-01-02] MEDS: *HR* OxyCODONE Immed Rel 5 MG TABLET PO PRN ×2 (02:56→10:25)
[2019-01-02] MEDS: Acetaminophen 325 MG TABLET PO PRN (02:56)
[2019-01-02] MEDS: Piperacillin/Tazobactam 3.375 GM in 0.9 % Sodium Chloride Mini Bag 100 ML IVPB SCH ×2 (02:59→10:22)
[2019-01-02 07:19] LABS: Basophils % 0.3 %; Eosinophils # 0.2 K/mcL (0.0-0.6); Hematocrit 28.1 % (37.5-50.1); Hemoglobin 9.2 g/dL (12.9-16.9); Immature Granulocytes % 0.6 % (0-4); Lymphocytes # 1.1 K/mcL (0.6-4.6); Lymphocytes % 9.9 %; Mean Corpuscular HGB Conc 32.7 g/dL (31.6-35.5); Mean Corpuscular Hemoglobin 31.5 pg (28.0-33.3); Mean Corpuscular Volume 96.2 fL (83.0-100.0); Mean Platelet Volume 9.2 fL (9.4-12.4); Monocytes # 1.4 K/mcL (0.0-1.3); Monocytes % 12.3 %; Neutrophils # 8.6 K/mcL (1.6-8.9); Platelet Count 138 K/mcL (140-400); Red Blood Count 2.92 M/mcL (4.19-5.50); Red Cell Distribution Width 12.7 % (11.5-14.5); Segmented Neutrophils % 74.9 %
[2019-01-02 07:29] LABS: White Blood Count 11.5 K/mcL (4.3-11.1)
[2019-01-02 07:36] LABS: Calcium 8.3 mg/dL (8.6-10.3); Potassium 3.3 mEq/L (3.5-5.1)
[2019-01-02] MEDS ORDERED: Aminoglycoside Consult 1 EACH MC ONE (08:11)
[2019-01-02] MEDS: Nystatin SUSP 5 ML UD.LIQ PO SCH ×4 (10:25→21:27)
[2019-01-02] MEDS: clonazePAM 1 MG TABLET PO SCH ×2 (10:25→21:27)
[2019-01-02] MEDS: Lactobacillus 1 EACH CAP.SPRINK PO SCH ×2 (10:25→21:27)
[2019-01-02] MEDS: Vancomycin Oral Soln 125 MG/2.5 ML UDC PO SCH ×4 (10:25→21:27)
[2019-01-02] MEDS ORDERED: MVI, adult with vitamin K 10 ML in 0.9 % Sodium Chloride 1,000 ML IVC ONE (11:39)
[2019-01-02] MEDS: BRIVARACETAM 150 MG PO SCH ×2 (11:51→21:28)
[2019-01-02] MEDS: (Mirabegron [Myrbetriq] 50 MG) PO SCH (11:52)
[2019-01-02] MEDS: Ringers Solution, Lactated 1,000 ML IVC SCH (11:58)
[2019-01-02] MEDS ORDERED: levoFLOXacin 750 MG/150 ML 750 MG/150 ML BAG IVPB SCH (12:00)
[2019-01-02] MEDS: CANNABIDIOL PO SCH ×2 (12:00→21:26)
[2019-01-02 16:14] LABS: Adenovirus Not Detected (Not Detect); Bordetella Pertussis Not Detected (Not Detect); Chlamydophila pneumoniae Not Detected (Not Detect); Coronavirus 229E Not Detected (Not Detect); Coronavirus HKU1 Not Detected (Not Detect); Coronavirus NL63 Not Detected (Not Detect); Coronavirus OC43 Not Detected (Not Detect); Human Metapneumovirus Not Detected (Not Detect); Human Rhinovirus/Enterovirus Not Detected (Not Detect); Influenza A Subtype 2009 H1 Not Detected (Not Detect); Influenza B Not Detected (Not Detect); Mycoplasma pneumoniae Not Detected (Not Detect); Parainfluenza Virus 1 Not Detected (Not Detect); Parainfluenza Virus 2 Not Detected (Not Detect); Parainfluenza Virus 3 Not Detected (Not Detect); Parainfluenza Virus 4 Not Detected (Not Detect); Respiratory Syncytial Virus Not Detected (Not Detect)
[2019-01-02] MEDS: tiZANidine 4 MG TABLET PO SCH (17:04)
[2019-01-02 17:21] LABS: Uric Acid 4.9 mg/dL (2.3-7.6)
[2019-01-02] MEDS: Divalproex (24 HR) 250 MG TABLET PO SCH (21:27)
[2019-01-03] MEDS: *HR* OxyCODONE Immed Rel 5 MG TABLET PO PRN ×3 (03:33→14:30)
[2019-01-03] MEDS ORDERED: Potassium Chloride Elixir 20 MEQ/15 ML UDC PO ONE (09:26)
[2019-01-03] MEDS: Nystatin SUSP 5 ML UD.LIQ PO SCH ×3 (09:30→16:53)
[2019-01-03] MEDS: Vancomycin Oral Soln 125 MG/2.5 ML UDC PO SCH ×3 (09:30→16:54)
[2019-01-03] MEDS: Lactobacillus 1 EACH CAP.SPRINK PO SCH (09:30)
[2019-01-03] MEDS: clonazePAM 1 MG TABLET PO SCH (09:30)
[2019-01-03] MEDS: *HR* LORazepam 2 MG/ML VIAL IVP PRN (09:30)
[2019-01-03] MEDS: CANNABIDIOL PO SCH (09:31)
[2019-01-03] MEDS: BRIVARACETAM 150 MG PO SCH (09:38)
[2019-01-03] MEDS: (Mirabegron [Myrbetriq] 50 MG) PO SCH (09:38)
[2019-01-03 09:47] LABS: Basophils # 0.1 K/mcL (0.0-0.2); Basophils % 0.5 %; Eosinophils # 0.3 K/mcL (0.0-0.6); Eosinophils % 2.9 %; Hematocrit 31.5 % (37.5-50.1); Hemoglobin 10.3 g/dL (12.9-16.9); Lymphocytes # 1.3 K/mcL (0.6-4.6); Mean Corpuscular HGB Conc 32.7 g/dL (31.6-35.5); Mean Corpuscular Hemoglobin 31.3 pg (28.0-33.3); Mean Corpuscular Volume 95.7 fL (83.0-100.0); Mean Platelet Volume 9.5 fL (9.4-12.4); Monocytes # 1.2 K/mcL (0.0-1.3); Monocytes % 12.5 %; Neutrophils # 6.3 K/mcL (1.6-8.9); Platelet Count 163 K/mcL (140-400); Red Blood Count 3.29 M/mcL (4.19-5.50); Red Cell Distribution Width 12.7 % (11.5-14.5); Segmented Neutrophils % 69.1 %; White Blood Count 9.2 K/mcL (4.3-11.1)
[2019-01-03 10:12] LABS: Potassium 3.3 mEq/L (3.5-5.1)
[2019-01-03 10:43] LABS: Complement C3 150 mg/dL (87-200)
[2019-01-03] MEDS ORDERED: Ringers Solution, Lactated 1,000 ML IVC SCH (11:45)
[2019-01-03] MEDS ORDERED: [UNRECOGNIZED DRUG - OTHER] TP ONE (13:54)
[2019-01-03] MEDS ORDERED: Silvasorb 44.4 ML TUBE TP ONE (14:30)
[2019-01-03] MEDS ORDERED: clonazePAM 1 MG TABLET PO SCH (15:45)
[2019-01-03 16:21] VITALS: BP 131/79
[2019-01-03] MEDS: tiZANidine 4 MG TABLET PO SCH (16:53)
[2019-01-05 10:41] LABS: ANA IgG by ELISA NONE DETECTED (None Detected)
[2019-01-08 09:46] LABS: Serine Protease-3 Antibody 0 AU/mL (0-19)
== END 2019-01-03 19:03 | disposition short-term general hospital (02) | DRG 720 ==
LOC: EMEROOARM 13:58 → 3ANU 13:58 → SUATTDRO 16:27 → 3ANU 18:27 → SUATTDRO 12-28 13:01 → 3ANU 12-28 23:35
PROVIDERS: ADMIT Internal Medicine; ATTEND Internal Medicine